=== PATIENT | female | born 1965 | race African-American/Black ===

== ENCOUNTER 2019-03-01 14:44 | Inpatient (IN) | payer MEDICARE, MEDICAID ==
[2019-03-01 15:16] LABS: #Basophils 0.1 thou/uL (0.0-0.2); #Monocytes 0.1 thou/uL (0.11-0.59); #Neutrophils 4.1 thou/uL (1.40-6.50); %Basophils 1.2 % (0.0-1.0); %Eosinophils 0.6 % (0.0-10.0); %Monocytes 1.7 % (0.0-10.0); %Neutrophils 64.5 % (42.0-75.0); Hemoglobin 13.2 g/dL (12.0-16.0); Mean Corpuscular HGB CONC 32.4 g/dL (32.0-36.0); Mean Corpuscular Hemoglobin 27.6 pg (27.0-31.0); Mean Corpuscular Volume 85.3 fL (78.0-98.0); Mean Platelet Volume 6.2 fL (7.4-10.4); Platelet Count 267 thou/uL (130-400); RBC Distribution Width 12.2 % (11.5-14.5); Red Blood Cell (RBC) Count 4.79 mill/uL (4.20-5.40); White Blood Cell (WBC) Count 6.3 thou/uL (4.8-10.8)
[2019-03-01 15:28] LABS: PTT 28.8 SEC (22.9-36.1); Prothrombin Time 13.2 SEC (12.0-14.7)
[2019-03-01 15:35] LABS: ALT (SGPT) 19 U/L (8-55); AST (SGOT) 24 U/L (5-34); Acetaminophen Less than 6.0 mcg/mL (10.0-30.0); Albumin 4.7 g/dL (3.5-5.0); Alcohol Less than 10 mg/dL (Less than 10); Alkaline Phosphatase 90 U/L (40-150); Anion Gap 11 mmol/L (10-20); BUN (Urea Nitrogen) 13 mg/dL (9.8-20.1); Bilirubin, Total 0.4 mg/dL (0.2-1.2); Calc. Creatinine Clearance 0 mL/min (70-130); Carbon Dioxide 28 mmol/L (22-29); Chloride 106 mmol/L (98-107); Estimated GFR-MDRD 47; Globulin 3.9 g/dL (2.4-3.5); Glucose 120 mg/dL (70-105); Potassium 4.2 mmol/L (3.5-5.1); Protein, Total 8.6 g/dL (6.0-8.3); Salicylate Less than 8.0 mg/dL (15.0-30.0); Sodium 141 mmol/L (136-145)
--- NOTE | 2019-03-01 15:37 | CT ---
CT BRAIN: 03/01/2019 PROVIDED CLINICAL HISTORY: Altered mental status. COMPARISON: 03/09/2015 FINDINGS: The ventricular system appears normal in size and morphology. There is no evidence for intracranial hemorrhage or mass effect. Encephalomalacia involving a portion of the right frontal region is redem onstrated. Chronic microvascular ischemic changes are also seen. The extracranial soft tissues and osseous structures demonstrate no acute abnormality. IMPRESSION: No evidence for intracranial hemorrhage or mass effect. POS: [facility]
[2019-03-01] MEDS ORDERED: Nitroglycerin 2% Ointment 1 INCH/1 GM Packet ONE (16:51)
[2019-03-01] MEDS ORDERED: Aspirin Chewable 81 MG TAB ONE (17:06)
[2019-03-01 18:11] LABS: Bilirubin Negative (Negative); Blood, Urine Small (Negative); Clarity CLEAR (Clear); Glucose, Urine (Dipstick) Negative (Negative); Leukocyte Moderate (Negative); Nitrite Negative (Negative); Protein, Urine (Dipstick) Negative (Neg-Trace); Specific Gravity, Urine 1.009 (1.002-1.036); Urobilinogen 0.2 mg/dL (0.2-1.0)
[2019-03-01 18:13] LABS: Bacteria/HPF Rare-Few HPF (None Seen); Hyaline Casts/LPF 0-3 HYALINE CAST LPF (0-3 Hyaline); RBC/HPF 0-3 HPF (0-3); Squamous Epithelial 0-3 HPF (0-3)
[2019-03-01 18:25] LABS: Amphetamine Not Detected (NotDetected); Barbiturates Screen Not Detected (NotDetected); Benzodiazepine Screen Not Detected (NotDetected); Cocaine Metabolite Screen Not Detected (NotDetected); Medtox Control Line Valid? VALID (VALID); Medtox Reader # READER 4; Methadone Not Detected (NotDetected); Methamphetamine Not Detected (NotDetected); Opiate Screen Not Detected (NotDetected); Oxycodone Screen Not Detected (NotDetected); Phencyclidine (PCP) Not Detected (NotDetected); THC/Cannabinoid Screen Not Detected (NotDetected); Tricyclic Screen Not Detected (NotDetected)
[2019-03-01] MEDS ORDERED: Ondansetron PF 4 MG/2 ML Vial IVP PRN (22:06)
[2019-03-01] MEDS ORDERED: Acetaminophen 325 MG TAB PO PRN (22:06)
[2019-03-01] MEDS ORDERED: Ondansetron ODT 4 MG TAB PO PRN (22:06)
[2019-03-01] MEDS ORDERED: hydrALAZINE 20 MG/ML VIAL SLOW IVP PRN (22:06)
[2019-03-01] MEDS ORDERED: Amlodipine 5 MG TAB PO SCH (22:15)
[2019-03-02 00:20] VITALS: BMI 31.4
--- NOTE | 2019-03-02 01:29 | HP ---
PRIMARY CARE PHYSICIAN: The patient currently does not have a primary care physician. CHIEF COMPLAINT: "They thought I had a stroke." HISTORY OF PRESENT ILLNESS: Ms. Gonzalez is a pleasant 54-year-old female, who has a history of schizophrenia as well as depression. She also has a history of hypertension, but has not been on blood pressure medications in sometime. She says that earlier today, she and her granddaughter went to pay the light bill and then they came back home. She says that she was trying to help her granddaughter get dressed and then she fell. She says she got weak on her left side and then she says her speech got slurred. Apparently, her sister's was present as well and called the ambulance, and they brought her to the emergency room for evaluation. There is concern for possible stroke versus possible psychiatric illness exacerbation, and she is being placed in observation for this. The patient says that she has been having trouble finding words and she will have very long pauses between sentences and in an attempt to try to collect her thoughts. She will continue to say just wait and will be at least 2 to 3 minutes before she can answer question. Her speech is however clear. She denies any chest pain or shortness of breath. No headache. No dizziness. No nausea. No vomiting. She denies ever having anything like this happened before, however, it is noted in her hospital records that she has had a previous stroke with left-sided weakness. REVIEW OF SYSTEMS: All systems are reviewed and are negative except for that mentioned in the history of present illness. PAST MEDICAL HISTORY: Significant for previous CVA, coronary artery disease on cardiac catheterization with nonobstructive disease, depression, chronic kidney disease stage 3, hypertension, and schizophrenia. PAST SURGICAL HISTORY: She has had a cardiac catheterization. She has had an ORIF of the right ulnar, as well as an appendectomy. ALLERGIES: NO KNOWN DRUG ALLERGIES. SOCIAL HISTORY: She is . She has 2 children. She is a nonsmoker and nondrinker. FAMILY HISTORY: Significant for diabetes in her grandmother. MEDICATIONS: She is only taking Seroquel right now. PHYSICAL EXAMINATION: GENERAL: She is alert and oriented. She appears to be in no acute distress, however at times, she will become tearful when asking questions. She is well developed and well nourished. VITAL SIGNS: Her blood pressure was ranging from 180 to 200 systolic, heart rate in the 70s, respiratory rate of 16, and she is afebrile. HEENT: Pupils are equal, round, and reactive. Extraocular muscles are intact. Her sclerae are anicteric. There is no erythema, no exudates. She has poor dentition. NECK: There is no adenopathy. No bruits. LUNGS: Clear to auscultation. I did not appreciate any wheezing, no rales, no rhonchi. CARDIOVASCULAR: She had a normal S1, S2. I did not appreciate an S3 or S4. No murmurs, clicks or rubs. ABDOMEN: Obese. Soft, nontender, and nondistended. Positive for bowel sounds. No rebound or guarding. No organomegaly. EXTREMITIES: There is no edema. No calf tenderness. No joint effusions. NEUROLOGIC: Her cranial nerves 2 through 12 are intact on her upper extremity. She did have some right upper extremity weakness compared to the left and she had a slight drift, as well as slight weakness on the right lower extremity. However, the muscle strength was 5/5. SKIN AND INTEGUMENT: There are no skin changes. No rash. However, it is noted that she did have some hammertoe deformities in the toes. LAB AND X-RAY: She had an EKG, which is by my reading, showed some baseline artifact. It was sinus and the rate was in the 90s. She had a CT scan of the brain, which was negative. Her lab results: White blood cell count 6.3, hemoglobin 13.2, hematocrit is 40.9, and platelet count is 267. INR is 1.0. Chemistry: Sodium 141, potassium 4.2, chloride is 106, CO2 is 28, BUN of 13, creatinine 1.4, glucose is 120. CK is 257. Troponin is less than 0.010. Urinalysis is essentially negative. Urine drug screen was negative. ASSESSMENT: This is a 54-year-old female, who presents to the emergency room with complaints of slurred speech and difficulty with word finding. It is equivocal whether or not she has any weakness. I suspect that her findings could likely be related to an exacerbation of her psychiatric illness. However, she does have risk factors for cerebrovascular disease and her blood pressure is uncontrolled. Therefore, we will place her in observation, get an echocardiogram as well as carotid Dopplers and MRI. Get a lipid panel and monitor her for atrial fibrillation. 1. Uncontrolled hypertension. We will restart amlodipine. It appears she had been on this particular medication in the past as well as p.r.n. medicines for blood pressure and likely she will need to go home on some type of antihypertensive. We will also place her on aspirin and low-dose statin. 2. For depression and schizophrenia, we will restart Seroquel and we will need to reconcile and restart her home medications. It is also noted that she denied any suicidal or homicidal ideation. Job ID: [id number]
[2019-03-02 06:11] LABS: Cardiac Risk 2.6 (Less than 4.5)
[2019-03-02] MEDS: Aspirin 325 mg Enteric Coated Tablet PO SCH (07:53)
[2019-03-02] MEDS: Enoxaparin Sodium 40 MG/0.4 ML SYRINGE SC SCH (07:54)
[2019-03-02] MEDS: Amlodipine 5 MG TAB PO SCH (07:55)
--- NOTE | 2019-03-02 08:33 | ULT ---
EXAM: Carotid Doppler PROVIDED CLINICAL HISTORY: TIA COMPARISON: 01/20/2015 FINDINGS: Grayscale and color Doppler sonography with spectral analysis was performed of the extracranial carot id system bilaterally. There is no evidence for a hemodynamically significant internal carotid artery stenosis by peak systolic velocity or ratio criteria. Antegrade flow is seen in the vertebral arteries. IMPRESSION: No sonographic evidence for a hemodynamically significant internal carotid artery stenosis.
--- NOTE | 2019-03-02 12:33 | MRI ---
NONCONTRAST ENHANCED MRI IMAGES BRAIN: DATE: 03/02/2019. COMPARISON: Comparison is made to a previous CT from 03/01/2019 and previous MRI from 03/09/2015. FINDINGS: Multiplanar multisequence noncontrast enhanced MRI images of the brain obtained. Old area of stroke is seen in the right cerebellum, right frontal lobe, left anterior and posterior f rontal lobes. These appear to be old. There are areas of acute diffusion restriction seen in the left centrum semiovale compatible with lef t deep white matter areas of acute stroke which were not present on the previous exam. These areas demonstrate mild increased T2 signal in the T2-weighted sequences. IMPRESSION: Multiple old areas of strokes and small subtle areas of acute strokes in the left centrum semiovale. Transcribed Date/Time: 03/02/2019 12:45 PM
--- NOTE | 2019-03-02 15:43 | PDOC.PN ---
- Subjective Encounter Start Date: 03/02/19 Encounter Start Time: 15:42 Patient lying in bed with family at bedside. She reports feeling a little better today, but still reporting right sided weakness and trouble finding her words. She denies chest pain, palpitations or shortness of breath. MRI showing acute infarct. - Objective Resuscitation Status - Order Detail: 03/01/19 22:01 Resuscitation Status Routine Resuscitation Status: FULL: Full Resuscitation MAR Reviewed: Yes Vital Signs & Weight: Vital Signs (12 hours) Temp Pulse Resp BP BP Pulse Ox 03/02/19 11:39 98.7 F 84 16 166/105 H 100 03/02/19 07:55 66 183/99 H 03/02/19 07:53 98.4 F 58 L 13 183/99 H 03/02/19 04:00 97.6 F 53 L 16 161/92 H 99 Weight Weight 194 lb 12.8 oz I&O: 03/01/19 03/02/19 03/03/19 06:59 06:59 06:59 Intake Total 150 Output Total 200 500 Balance -50 -500 Result Diagrams: 03/01/19 15:02 03/01/19 15:02 Radiology Reviewed by me: Yes Phys Exam - Physical Examination Constitutional: NAD HEENT: moist MMs, oral pharynx no lesions Neck: supple Respiratory: no wheezing, clear to auscultation bilateral Cardiovascular: RRR, no significant murmur Gastrointestinal: soft, positive bowel sounds Musculoskeletal: no edema, pulses present Right sided weakness noted Neurological: moves all 4 limbs 3+ strength on right, 5+ on the left Lymphatic: no nodes Psychiatric: A&O x 3 Skin: no rash, cap refill <2 seconds Dx/Plan (1) CVA (cerebral vascular accident) Code(s): I63.9 - CEREBRAL INFARCTION, UNSPECIFIED Status: Acute (2) HTN (hypertension) Code(s): I10 - ESSENTIAL (PRIMARY) HYPERTENSION Status: Acute (3) Dysarthria Code(s): R47.1 - DYSARTHRIA AND ANARTHRIA Status: Acute (4) Schizoaffective disorder Code(s): F25.9 - SCHIZOAFFECTIVE DISORDER, UNSPECIFIED Status: Acute - Plan cont current plan of care, plan discussed w/ family, PT/OT, speech therapy, DVT proph w/lovenox * MRI results discussed with patient and family and all questions answered * Await echo * Consult placed for Neurology Dr Buck * Continue ASA and statin therapy * Continue other home medications * PT/OT,speech therapy ordered * Transition to Inpatient due to acute stroke
[2019-03-02] MEDS: Atorvastatin Calcium 40 MG TAB PO SCH (20:38)
[2019-03-02] MEDS ORDERED: QUETIAPINE FUMARATE 500 MG PO SCH (21:00)
--- NOTE | 2019-03-03 08:53 | CT ---
CT BRAIN:. HISTORY: Stroke alert. FINDINGS: Noncontrast enhanced images of the brain obtained. Comparison is made to a previous exam from 03/01/2019. Old right frontal areas of stroke seen. There is an area of subtle reynolds-white differentiation hypoden sity which has developed in the posterior aspect of the left frontal lobe in the precentral sulcus. This may represent a newly developed left high MCA or ALPESH area of developing stroke. This area has de veloped since the previous comparison CT from 2 days earlier. IMPRESSION: Findings concerning for a small high posterior frontal lobe area of reynolds-white differentiation loss c ompatible with an area of stroke. Findings discussed with Dr. Wilde at 8:51 AM on 03/03/2019. Code CR Transcribed Date/Time: 03/03/2019 9:11 AM
[2019-03-03] MEDS ORDERED: Sodium Chloride 0.9% 1,000 ML IV SCH (09:00)
--- NOTE | 2019-03-03 09:13 | PDOC.PN ---
- Subjective Encounter Start Date: 03/03/19 Encounter Start Time: 09:00 Subjective: Code Apollo called due to somnolence and increased R-sided weakness -: with prior acute L-post frontal lobe CVA on ASA. + Seroquel overnight - Objective Resuscitation Status - Order Detail: 03/01/19 22:01 Resuscitation Status Routine Resuscitation Status: FULL: Full Resuscitation MAR Reviewed: Yes Vital Signs & Weight: Vital Signs (12 hours) Temp Pulse Resp BP Pulse Ox 03/03/19 08:00 97.3 F L 66 18 112/74 99 03/03/19 04:00 98.1 F 70 16 104/74 100 03/03/19 00:00 98.2 F 65 16 121/76 100 Weight Weight 194 lb 12.8 oz I&O: 03/02/19 03/03/19 03/04/19 06:59 06:59 06:59 Intake Total 150 1240 Output Total 200 500 Balance -50 740 Result Diagrams: 03/01/19 15:02 03/01/19 15:02 Additional Labs: Accuchecks 03/03/19 08:20 POC Glucose 143 H Radiology Reviewed by me: Yes (CT brain - L post frontal lobe acute infarct with mild edema) EKG Reviewed by me: Yes (Tele - SR) Phys Exam - Physical Examination somnolent, briefly opens eyes to name/tactile HEENT: PERRLA, sclera anicteric, oral pharynx no lesions Neck: no nodes, no JVD, supple, full ROM Respiratory: no wheezing, no rales, no rhonchi, clear to auscultation bilateral S1, S2 Cardiovascular: RRR, no significant murmur, no rub, gallop Gastrointestinal: soft, non-tender, no distention, positive bowel sounds Musculoskeletal: no edema, pulses present R-sided hemiparesis, moves XAVIER/LLE, + dysarthria somnolent Skin: normal turgor, cap refill <2 seconds Dx/Plan (1) CVA (cerebral vascular accident) Code(s): I63.9 - CEREBRAL INFARCTION, UNSPECIFIED Status: Acute Qualifiers: CVA mechanism: thrombosis Laterality of affected vessel: left Comment: L- posterior frontal lobe distribution, continue ASA, Lipitor (2) RUE weakness Code(s): R29.898 - OTH SYMPTOMS AND SIGNS INVOLVING THE MUSCULOSKELETAL SYSTEM Status: Acute Comment: Secondary to #1, general stroke mgmt, PT/OT (3) HTN (hypertension) Code(s): I10 - ESSENTIAL (PRIMARY) HYPERTENSION Status: Chronic Qualifiers: Hypertension type: essential hypertension Qualified Code(s): I10 - Essential (primary) hypertension Comment: BP stable currently (4) Dysarthria Code(s): R47.1 - DYSARTHRIA AND ANARTHRIA Status: Acute Comment: Persistent secondary to #1, monitor clinical progress (5) Schizoaffective disorder Code(s): F25.9 - SCHIZOAFFECTIVE DISORDER, UNSPECIFIED Status: Chronic Comment: Confirm home regimen of Seroquel - Plan PT/OT, social media sr strategy manager, speech therapy, out of bed/ambulate Continue Stroke protocol -: Continue ASA 325mg daily -: Confirm home dose of Seroquel and limit sedating meds -: Continue Lipitor -: SNF options * AM lab: BMP
[2019-03-03] MEDS: Aspirin 325 mg Enteric Coated Tablet PO SCH (09:24)
[2019-03-03] MEDS: Enoxaparin Sodium 40 MG/0.4 ML SYRINGE SC SCH (09:24)
[2019-03-03] MEDS: Amlodipine 5 MG TAB PO SCH (09:24)
[2019-03-03] MEDS: Sodium Chloride 0.9% 1,000 ML IV SCH ×2 (09:29→22:14)
[2019-03-03 09:33] LABS: PTT 27.5 SEC (22.9-36.1); Prothrombin Time 13.5 SEC (12.0-14.7)
[2019-03-03 09:44] LABS: CKMB 1.9 ng/mL (0-6.6); Troponin I Less than 0.010 ng/mL (< 0.028)
--- NOTE | 2019-03-03 10:16 | CON ---
DATE OF CONSULTATION: 03/03/2019 CONSULTING PHYSICIAN: Hospitalist Service. IMPRESSION: 1. Acute left centrum semiovale infarct resulting in right hemiparesis. 2. History of prior right MCA stroke. 3. Schizophrenia. 4. Hypertension. PLAN: 1. Continue aspirin and add a low dose of statin. 2. IV fluids. 3. Hold Seroquel. HISTORY OF PRESENT ILLNESS: Ms. Gonzalez is a 54-year-old black female with the above noted history. She came in with complaints of right-sided weakness. Her MRI of the brain showed an acute area of infarction involving the left centrum semiovale. There are chronic areas of infarction involving the right MCA territory. Her carotid ultrasound did not show any stenosis. Her echocardiogram showed a normal ejection fraction of 50% to 55%. She apparently received 500 mg of Seroquel last night. She was quite lethargic this morning, was not arousable. Code was called. She had a repeat CT scan of the brain, which showed an area of acute ischemia in the left subcortical region. She has been nonverbal according to the nursing staff. No seizure activity was witnessed by anyone. PAST MEDICAL HISTORY: As listed above. ALLERGIES: NONE. SOCIAL HISTORY: Unremarkable as far as the chart review. FAMILY HISTORY: Not obtainable. REVIEW OF SYSTEMS: Not obtainable. PHYSICAL EXAMINATION: GENERAL: A well-nourished, middle-aged woman, lying in bed quietly. VITAL SIGNS: Stable. She is afebrile. HEENT: Pupils are equal and reactive. Conjunctivae clear. Oropharynx clear. NECK: Supple. EXTREMITIES: No cyanosis. NEUROLOGIC: She appears to be quite lethargic. She would follow limitedly as far as simple commands go, could not get her to respond verbally. There is a slight right facial droop. The right upper and lower extremities appear quite flaccid. Plantar response was mute on the right and downgoing on the left. No abnormal movements were seen. Gait was not testable. LABORATORY DATA: EKG showed normal sinus rhythm. SUMMARY: Middle-aged woman with fairly impressive areas of chronic ischemic injury with minimal risk factors. She seems to have new right-sided weakness and fairly small area of infarction on the left. I agree with aspirin and statin. Her workup was otherwise complete. I would suspect that her level of consciousness should improve with time and sedatives washing out, probably will require rehab. Job ID: [id number]
[2019-03-03] MEDS ORDERED: Aspirin 300 MG Suppository PR SCH (16:15)
[2019-03-04] MEDS: Atorvastatin Calcium 40 MG TAB PO SCH ×2 (02:14→20:45)
[2019-03-04 05:23] LABS: Anion Gap 12 mmol/L (10-20); BUN (Urea Nitrogen) 16 mg/dL (9.8-20.1); Calc. Creatinine Clearance 85 mL/min (70-130); Calcium 9.5 mg/dL (7.8-10.44); Carbon Dioxide 21 mmol/L (22-29); Chloride 109 mmol/L (98-107); Estimated GFR-MDRD 65; Glucose 86 mg/dL (70-105); Potassium 3.9 mmol/L (3.5-5.1); Sodium 138 mmol/L (136-145)
[2019-03-04] MEDS ORDERED: Diabetic Tussin 200 MG/10 ML UDCUP PO PRN (08:00)
[2019-03-04] MEDS ORDERED: Sodium Chloride 0.65% Nasal 44 ML BOT EA NARE PRN (08:00)
[2019-03-04] MEDS ORDERED: Artificial Tears 18 DROP/0.9 ML EA EYE PRN (08:00)
[2019-03-04] MEDS ORDERED: Eucerin (Mineral Oil/Petrolatum,White) 30 gm Jar TOP PRN (08:00)
[2019-03-04] MEDS ORDERED: hydrALAZINE 20 MG/ML VIAL SLOW IVP PRN (08:00)
[2019-03-04] MEDS ORDERED: Bisacodyl 10 MG SUPP PR PRN (08:00)
[2019-03-04] MEDS ORDERED: Senokot S 8.6-50 MG TAB PO PRN (08:00)
[2019-03-04] MEDS ORDERED: Loratadine 10 MG TAB PO PRN (08:00)
[2019-03-04] MEDS ORDERED: Loperamide HCl 2 MG CAP PO PRN (08:00)
[2019-03-04] MEDS ORDERED: Cepastat Lozenges 1 LOZ PO PRN (08:00)
[2019-03-04] MEDS: Aspirin 325 mg Enteric Coated Tablet PO SCH (10:12)
[2019-03-04] MEDS: Enoxaparin Sodium 40 MG/0.4 ML SYRINGE SC SCH (10:13)
[2019-03-04] MEDS: Amlodipine 5 MG TAB PO SCH (10:13)
--- NOTE | 2019-03-04 11:10 | PDOC.PN ---
- Subjective Encounter Start Date: 03/04/19 Encounter Start Time: 07:20 -: old records requested/rev Patient seen and examined. No new complaints. No overnight events - Objective Resuscitation Status - Order Detail: 03/01/19 22:01 Resuscitation Status Routine Resuscitation Status: FULL: Full Resuscitation MAR Reviewed: Yes Vital Signs & Weight: Vital Signs (12 hours) Temp Pulse Resp BP BP Pulse Ox 03/04/19 10:13 86 167/102 H 03/04/19 07:57 98 F 81 20 154/95 H 97 03/04/19 04:56 97.9 F 86 18 178/99 H 98 Weight Weight 194 lb 12.8 oz I&O: 03/03/19 03/04/19 03/05/19 06:59 06:59 06:59 Intake Total 1240 1840 Output Total 500 1000 Balance 740 840 Result Diagrams: 03/01/19 15:02 03/04/19 04:40 Radiology Reviewed by me: Yes EKG Reviewed by me: Yes Phys Exam - Physical Examination Constitutional: NAD HEENT: PERRLA, moist MMs, sclera anicteric Neck: no JVD, supple Respiratory: no wheezing, no rales, no rhonchi Cardiovascular: RRR, no significant murmur, no rub Gastrointestinal: soft, non-tender, no distention, positive bowel sounds Musculoskeletal: no edema, pulses present Neurological: moves all 4 limbs Lymphatic: no nodes Psychiatric: normal affect, A&O x 3 Skin: no rash, normal turgor Dx/Plan (1) CVA (cerebral vascular accident) Code(s): I63.9 - CEREBRAL INFARCTION, UNSPECIFIED Status: Acute Qualifiers: CVA mechanism: thrombosis Laterality of affected vessel: left Comment: L- posterior frontal lobe distribution, continue ASA, Lipitor (2) RUE weakness Code(s): R29.898 - OTH SYMPTOMS AND SIGNS INVOLVING THE MUSCULOSKELETAL SYSTEM Status: Acute Comment: Secondary to #1, general stroke mgmt, PT/OT (3) Dyslipidemia Code(s): E78.5 - HYPERLIPIDEMIA, UNSPECIFIED Status: Chronic (4) HTN (hypertension) Code(s): I10 - ESSENTIAL (PRIMARY) HYPERTENSION Status: Chronic Qualifiers: Hypertension type: essential hypertension Qualified Code(s): I10 - Essential (primary) hypertension Comment: BP stable currently (5) Obesity (BMI 30.0-34.9) Code(s): E66.9 - OBESITY, UNSPECIFIED Status: Chronic (6) Schizoaffective disorder Code(s): F25.9 - SCHIZOAFFECTIVE DISORDER, UNSPECIFIED Status: Chronic Comment: - Plan cont current plan of care, plan discussed w/ family, PT/OT * continue current medical treatment for CVA * medication reviewed as below * symptomatic treatment * pt will benefit with stroke team evaluation today and tomorrow * discharge planning, should be able to discharge tomorrow. Review of Systems - Review of Systems ENT: negative: Ear Pain, Ear Discharge, Nose Pain, Nose Discharge, Nose Congestion, Mouth Pain, Mouth Swelling, Throat Pain, Throat Swelling, Other Respiratory: negative: Cough, Dry, Shortness of Breath, Hemoptysis, SOB with Excertion, Pleuritic Pain, Sputum, Wheezing Cardiovascular: negative: chest pain, palpitations, orthopnea, paroxysmal nocturnal dyspnea, edema, light headedness, other Gastrointestinal: negative: Nausea, Vomiting, Abdominal Pain, Diarrhea, Constipation, Melena, Hematochezia, Other Genitourinary: negative: Dysuria, Frequency, Incontinence, Hematuria, Retention , Other Musculoskeletal: negative: Neck Pain, Shoulder Pain, Arm Pain, Back Pain, Hand Pain, Leg Pain, Foot Pain, Other - Medications/Allergies Allergies/Adverse Reactions: Allergies Allergy/AdvReac Type Severity Reaction Status Date / Time No Known Drug Allergies Allergy Verified 03/01/19 21:33 Medications: Current Medications Acetaminophen (Tylenol) 650 mg PO Q4H PRN PRN Reason: Headache/Fever/Mild Pain (1-3) Amlodipine Besylate (Norvasc) 5 mg PO DAILY [facility] Last Admin: 03/04/19 10:13 Dose: 5 mg Artificial Tears (Tears Naturale) 2 drop EA EYE PRN PRN PRN Reason: Dry Eyes Aspirin (Ecotrin) 325 mg PO DAILY [facility] Last Admin: 03/04/19 10:12 Dose: 325 mg Atorvastatin Calcium (Lipitor) 40 mg PO HS [facility] Last Admin: 03/04/19 02:14 Dose: Not Given Bisacodyl (Dulcolax) 10 mg ND DAILYPRN PRN PRN Reason: Constipation Enoxaparin Sodium (Lovenox) 40 mg SC 0900 [facility] Last Admin: 03/04/19 10:13 Dose: 40 mg Guaifenesin (Robitussin Sf) 200 mg PO Q4H PRN PRN Reason: Cough Hydralazine HCl (Apresoline) 10 mg SLOW IVP Q4H PRN PRN Reason: SBP Greater Than 180 Loperamide HCl (Imodium) 2 mg PO PRN PRN PRN Reason: Diarrhea/Loose Stools Loratadine (Claritin) 10 mg PO DAILYPRN PRN PRN Reason: Sinus Symptoms Mineral Oil/White Petrolatum (Eucerin Cream) 0 gm TOP BIDPRN PRN PRN Reason: Dry Skin Ondansetron HCl (Zofran Odt) 4 mg PO Q6H PRN PRN Reason: Nausea/Vomiting Ondansetron HCl (Zofran) 4 mg IVP Q6H PRN PRN Reason: Nausea/Vomiting Senna/Docusate Sodium (Senokot S) 2 tab PO BID PRN PRN Reason: Constipation Sodium Chloride (Flush - Normal Saline) 10 ml IVF PRN PRN PRN Reason: Saline Flush Sodium Chloride ([place] Nasal [place] 0.65%) 0 ml EA NARE QIDPRN PRN PRN Reason: Nasal Congestion Throat Lozenges (Cepastat Lozenges) 1 chase PO Q2H PRN PRN Reason: Sore Throat
[2019-03-05] MEDS: Amlodipine 5 MG TAB PO SCH (08:18)
[2019-03-05] MEDS: Aspirin 325 mg Enteric Coated Tablet PO SCH (08:18)
[2019-03-05] MEDS: Enoxaparin Sodium 40 MG/0.4 ML SYRINGE SC SCH (08:21)
[2019-03-05] MEDS ORDERED: Polyethylene Glycol 3350 17 GM Packet PO SCH (09:00)
--- NOTE | 2019-03-05 11:06 | PDOC.PN ---
- Subjective Encounter Start Date: 03/05/19 Encounter Start Time: 07:30 pt is weak, PT recommends rehab, pt wants to take out her IV - Objective Resuscitation Status - Order Detail: 03/01/19 22:01 Resuscitation Status Routine Resuscitation Status: FULL: Full Resuscitation MAR Reviewed: Yes Vital Signs & Weight: Vital Signs (12 hours) Temp Pulse Resp BP BP Pulse Ox 03/05/19 08:18 87 164/98 H 03/05/19 07:44 97.6 F 90 20 173/93 H 98 03/05/19 04:00 99.0 F 94 18 156/97 H 96 03/05/19 00:00 98.3 F 99 19 121/94 H 96 Weight Admit Weight 194 lb 12.8 oz Weight 194 lb 12.8 oz I&O: 03/04/19 03/05/19 03/06/19 06:59 06:59 06:59 Intake Total 1840 793 Output Total 1000 600 Balance 840 193 Result Diagrams: 03/01/19 15:02 03/04/19 04:40 EKG Reviewed by me: Yes Phys Exam - Physical Examination Constitutional: NAD HEENT: PERRLA, moist MMs, sclera anicteric Neck: no JVD, supple Respiratory: no wheezing, no rales, no rhonchi Cardiovascular: RRR, no significant murmur, no rub Gastrointestinal: soft, non-tender, no distention, positive bowel sounds Musculoskeletal: no edema, pulses present Neurological: moves all 4 limbs Lymphatic: no nodes Psychiatric: normal affect Skin: no rash, normal turgor Dx/Plan (1) CVA (cerebral vascular accident) Code(s): I63.9 - CEREBRAL INFARCTION, UNSPECIFIED Status: Acute Qualifiers: CVA mechanism: thrombosis Laterality of affected vessel: left Comment: L- posterior frontal lobe distribution, continue ASA, Lipitor (2) RUE weakness Code(s): R29.898 - OTH SYMPTOMS AND SIGNS INVOLVING THE MUSCULOSKELETAL SYSTEM Status: Acute Comment: Secondary to #1, general stroke mgmt, PT/OT (3) Dyslipidemia Code(s): E78.5 - HYPERLIPIDEMIA, UNSPECIFIED Status: Chronic (4) HTN (hypertension) Code(s): I10 - ESSENTIAL (PRIMARY) HYPERTENSION Status: Chronic Qualifiers: Hypertension type: essential hypertension Qualified Code(s): I10 - Essential (primary) hypertension Comment: BP stable currently (5) Obesity (BMI 30.0-34.9) Code(s): E66.9 - OBESITY, UNSPECIFIED Status: Chronic (6) Schizoaffective disorder Code(s): F25.9 - SCHIZOAFFECTIVE DISORDER, UNSPECIFIED Status: Chronic Comment: - Plan cont current plan of care, PT/OT, social sciences research scientist * based on overall weakness, she will benefit with rehab * medication reviewed as below * symptomatic treatment * so far medically stable * continue stroke team evaluation * will consider discharge pending rehab approval. Review of Systems - Review of Systems Eyes: negative: Pain, Vision Change, Conjunctivae Inflammation, Eyelid Inflammation, Redness, Other ENT: negative: Ear Pain, Ear Discharge, Nose Pain, Nose Discharge, Nose Congestion, Mouth Pain, Mouth Swelling, Throat Pain, Throat Swelling, Other Respiratory: negative: Cough, Dry, Shortness of Breath, Hemoptysis, SOB with Excertion, Pleuritic Pain, Sputum, Wheezing Cardiovascular: negative: chest pain, palpitations, orthopnea, paroxysmal nocturnal dyspnea, edema, light headedness, other Gastrointestinal: negative: Nausea, Vomiting, Abdominal Pain, Diarrhea, Constipation, Melena, Hematochezia, Other Genitourinary: negative: Dysuria, Frequency, Incontinence, Hematuria, Retention , Other Musculoskeletal: negative: Neck Pain, Shoulder Pain, Arm Pain, Back Pain, Hand Pain, Leg Pain, Foot Pain, Other Skin: negative: Rash, Lesions, [place], Bruising, Other Neurological: Weakness. negative: Numbness, Incoordination, Change in Speech, Confusion, Seizures, Other - Medications/Allergies Allergies/Adverse Reactions: Allergies Allergy/AdvReac Type Severity Reaction Status Date / Time No Known Drug Allergies Allergy Verified 03/01/19 21:33 Medications: Current Medications Acetaminophen (Tylenol) 650 mg PO Q4H PRN PRN Reason: Headache/Fever/Mild Pain (1-3) Amlodipine Besylate (Norvasc) 5 mg PO DAILY [facility] Last Admin: 03/05/19 08:18 Dose: 5 mg Artificial Tears (Tears Naturale) 2 drop EA EYE PRN PRN PRN Reason: Dry Eyes Aspirin (Ecotrin) 325 mg PO DAILY [facility] Last Admin: 03/05/19 08:18 Dose: 325 mg Atorvastatin Calcium (Lipitor) 40 mg PO HS [facility] Last Admin: 03/04/19 20:45 Dose: 40 mg Bisacodyl (Dulcolax) 10 mg MO DAILYPRN PRN PRN Reason: Constipation Enoxaparin Sodium (Lovenox) 40 mg SC 0900 [facility] Last Admin: 03/05/19 08:21 Dose: 40 mg Guaifenesin (Robitussin Sf) 200 mg PO Q4H PRN PRN Reason: Cough Hydralazine HCl (Apresoline) 10 mg SLOW IVP Q4H PRN PRN Reason: SBP Greater Than 180 Loperamide HCl (Imodium) 2 mg PO PRN PRN PRN Reason: Diarrhea/Loose Stools Loratadine (Claritin) 10 mg PO DAILYPRN PRN PRN Reason: Sinus Symptoms Mineral Oil/White Petrolatum (Eucerin Cream) 0 gm TOP BIDPRN PRN PRN Reason: Dry Skin Ondansetron HCl (Zofran Odt) 4 mg PO Q6H PRN PRN Reason: Nausea/Vomiting Ondansetron HCl (Zofran) 4 mg IVP Q6H PRN PRN Reason: Nausea/Vomiting Polyethylene Glycol (Miralax) 17 gm PO DAILY [facility] Last Admin: 03/05/19 09:52 Dose: 17 gm Senna/Docusate Sodium (Senokot S) 2 tab PO BID PRN PRN Reason: Constipation Last Admin: 03/04/19 18:13 Dose: 2 tab Sodium Chloride (Flush - Normal Saline) 10 ml IVF PRN PRN PRN Reason: Saline Flush Last Admin: 03/04/19 20:45 Dose: 10 ml Sodium Chloride ([place] Nasal [place] 0.65%) 0 ml EA NARE QIDPRN PRN PRN Reason: Nasal Congestion Throat Lozenges (Cepastat Lozenges) 1 chase PO Q2H PRN PRN Reason: Sore Throat
[2019-03-05 15:20] VITALS: TEMP 98.4
[2019-03-05 16:58] VITALS: BP 150/101
--- NOTE | 2019-03-05 21:02 | DIS ---
DATE OF ADMISSION: 03/02/2019 DATE OF DISCHARGE: 03/05/2019 PRIMARY CARE PHYSICIAN: Yolanda Call admission. DISCHARGE DISPOSITION: Rehab. PRIMARY DISCHARGE DIAGNOSES: 1. Acute cerebrovascular accident. 2. Right upper extremity weakness due to problem #1. SECONDARY DISCHARGE DIAGNOSIS: 1. Hypertension. 2. Dyslipidemia. 3. Obesity with BMI 31. 4. Schizoaffective disorder. PRIMARY PROCEDURE/OPERATION: None. RADIOLOGICAL INVESTIGATION: CT brain, MRI brain, echocardiography. Repeat CT brain. Carotid Doppler. SIGNIFICANT LABORATORY DATA: Hemoglobin 13.2. INR 1.0. Creatinine 1.06. LDL 52. Urinalysis, leukocyte esterase moderate. Urine drug screen negative. DISCHARGE MEDICATIONS: 1. Seroquel 300 mg p.o. at bedtime. 2. Amlodipine 5 mg daily. 3. Aspirin 325 mg daily. 4. Lipitor 40 mg p.o. q.h.s. CONTRAINDICATION: None. CODE STATUS: Full code. INPATIENT CARDROOM MANAGER: Dr. Alhponse Buck, neurologist was consulted while in hospital. TEST RESULTS PENDING ON DISCHARGE: None. ALLERGIES: NO KNOWN DRUG ALLERGIES. DISCHARGE PLAN: Posthospital, the patient will follow up with primary care physician in 1 week. HOSPITAL COURSE: A 54-year-old female, who was admitted by Dr. Clark. Please see her H and P for further details. The patient came to emergency room for stroke-like symptoms. She was having right upper extremity weakness. Initial CT brain was not showing any acute process, but MRI confirmed multiple old areas of stroke and small areas of acute stroke in left centrum semiovale. The patient was admitted to Stroke Floor. The patient was evaluated by entire stroke team including neurologist. The patient was treated with aspirin. We started above-mentioned medication while in hospital. She had a stroke workup with carotid Doppler, which was unremarkable, and echocardiography was unremarkable. The patient had code green because of altered mental status that was related with somnolent medication, which was discontinued upon discharge. This patient is physically weak from stroke and that is why she needs rehab as per PT recommendation and with help of wrapper caser, we arranged physical rehabilitation program. Paperwork for discharge done and discharge medication reconciliation done. The patient is medically stable for discharge today. Job ID: [id number]
== END 2019-03-05 19:23 | DRG 65 ==
LOC: ERS 14:44 → 2SE 18:50 → OBSVTOIN 03-02 13:06
PROVIDERS: ADMIT Family Medicine; ATTEND Family Medicine
DX: I63.9 Cerebral infarction, unspecified (principal); G81.91 Hemiplegia, unspecified affecting right dominant side; I25.10 Atherosclerotic heart disease of native coronary artery without angina pectoris; F32.9 Major depressive disorder, single episode, unspecified; N18.3 Chronic kidney disease, stage 3 (moderate); I12.9 Hypertensive chronic kidney disease with stage 1 through stage 4 chronic kidney disease, or unspecified chronic kidney disease; F25.9 Schizoaffective disorder, unspecified; R47.1 Dysarthria and anarthria; E78.5 Hyperlipidemia, unspecified; E66.9 Obesity, unspecified; Z68.31 Body mass index [BMI] 31.0-31.9, adult; Z86.73 Personal history of transient ischemic attack (TIA), and cerebral infarction without residual deficits; Z95.5 Presence of coronary angioplasty implant and graft; Z90.49 Acquired absence of other specified parts of digestive tract
CPT/HCPCS: 36415; 36416; 70450; 70551; 80048; 80053; 80061; 80306; 80307; 81003; 81015; 82550; 82553; 84443; 84484; 85025; 85610; 85730; 93005; 93010; 93306; 93880; J1650

== ENCOUNTER 2019-04-24 09:49 | Inpatient (IN) | payer MEDICARE, MEDICAID ==
[~2019-04-24 09:49] MED LIST: ISOVUE-370 76%-LOCM 1 ML ONE
--- NOTE | 2019-04-24 10:06 | CT ---
CT Head without IV contrast COMPARISON: 03/03/2019. HISTORY: Stroke alert. Altered mental status. Left seen normal at 0915 hours. TECHNIQUE: Axial CT imaging at 5 mm intervals from vertex through skull base without contrast FINDINGS: There is a stable air insufflation right anterior frontal lobe with small area of septal malacia in t he left temporal lobe likely related to remote areas of infarction. There has been interval development of a low-density area within the left parietal lobe compared to the prior exam, but this does appear to represent an area of encephalomalacia. This was not seen in the prior CT scan examination, but there were findings suggestive of acute areas of infarctions in this region on MRI o f the brain on 03/02/2019. Remote infarctions in each cerebellar hemisphere are again seen. No acute cortical infarction, hemorrhage, mass effect, or midline shift is seen. There is mild cerebr al volume loss. The ventricular system is normal in size, shape, and position for the degree of sulcal atrophy. Visualized paranasal sinuses are clear. Metallic density overlies the region of the expected location of the tongue which is incompletely imaged but likely represents external jewelry. Osseous structures appear intact. IMPRESSION: 1. No acute intracranial abnormality demonstrated. 2. There is evidence of ventilation each cerebral hemisphere likely attributable to remote areas of i nfarction 3. Remote infarctions in each cerebellar hemisphere unchanged from prior exam. 4. Chronic small vessel ischemic changes and cerebral volume loss similar to prior exam. 5. Above findings discussed Dr. Mora in the emergency department on 04/24/2019 at 1001 hours
--- NOTE | 2019-04-24 10:29 | RAD ---
RADIOGRAPH CHEST 1 VIEW: DATE: 04/24/2019 HISTORY: 54-year-old female with dyspnea FINDINGS: There is no airspace density, pulmonary edema, or pneumothorax. The lateral costophrenic angles are n ot effaced. IMPRESSION: No acute pulmonary findings.
[2019-04-24 10:37] LABS: Mean Corpuscular HGB CONC 31.6 g/dL (32.0-36.0); Mean Corpuscular Hemoglobin 27.1 pg (27.0-31.0); Mean Platelet Volume 6.1 fL (7.4-10.4); Platelet Count 267 thou/uL (130-400); RBC Distribution Width 12.2 % (11.5-14.5); Red Blood Cell (RBC) Count 4.44 mill/uL (4.20-5.40); White Blood Cell (WBC) Count 5.1 thou/uL (4.8-10.8)
[2019-04-24] MEDS ORDERED: Fosphenytoin Sodium 1,500 MG in Sodium Chloride 0.9% 100 ML IVPB SCH (10:45)
[2019-04-24 10:53] LABS: Band 2 % (5-11); Eosinophils 1 % (0-10); Lymphocytes 56 % (21-51); MDiff Complete? YES; Monocytes 4 % (0-10); Neutrophil 37 % (42-75); RBC Morphology Normal
--- NOTE | 2019-04-24 10:53 | CT ---
EXAM: CT angiogram head with IV contrast and 3-D reconstructions CT angiogram neck with IV contrast and 3-D reconstructions CT brain perfusion PROVIDED CLINICAL HISTORY: Altered mental status. COMPARISON: Noncontrast CT head on 04/24/2019 and MRI brain on 03/02/2019. FINDINGS: There is occlusion of the M1 segment of the left middle cerebral artery with diminished enhancement o f peripheral branches in the left middle cerebral artery distribution. The right middle cerebral artery and bilateral anterior cerebral arteries are patent. There is a type origin of the right posterior cerebral artery which is patent. The basilar stevan ry is patent. There is occlusion of the most distal left posterior cerebral artery. The vertebral arteries are patent bilaterally, and the right vertebral artery is dominant. The left v ertebral artery arises from the aortic arch which is a normal variant. The bilateral subclavian arteries, innominate artery and bilateral common carotid arteries are patent . The bilateral internal and external carotid arteries appear patent. CT brain perfusion demonstrates decreased blood flow and blood volume in the right middle cerebral ar danyell distribution which corresponds to an area of encephalomalacia on noncontrast CT scan exam suggesting remote infarction. As noted above, there is occlusion of the M1 segment of the left middle cerebral artery. Area of dimi nished attenuation is seen within the left frontal lobe on the noncontrasted CT scan exam. However, this area of diminished attenuation was not seen on the prior CT examination but areas of infarction were seen on the prior MRI. Prior MRI examination also demonstrated what appears to be absence of the M1 segment left middle cerebral artery flow void, and this may be related to a more chronic occlu chemo. Perfusion imaging was not obtained above the level of the ventricles for further evaluation of the low density area in the left posterior frontal lobe, and as a result evaluation for penumbra i s unable to be performed. There is suggestion of area of diminished blood volume within the posterior left occipital lobe. Find ings are overall equivocal for an area of penumbra in the left occipital lobe based on blood volume and mean transit time. However, as noted on the CTA exam, there is an abrupt occlusion of the distal left posterior cerebral artery. IMPRESSION: 1. Occlusion of the M1 segment left middle cerebral artery with attenuation of the more distal left M CA branches. This was probably present on the prior MRI examination as there appeared to be absence of the left middle cerebral artery flow void; although, this is difficult to definitively determine o n the prior MRI exam. Low-density area in the left posterior frontal lobe on CT scan exam is likely related to a late subacute left MCA distribution infarction. 2. Abrupt occlusion of the more distal left posterior cerebral artery. There are findings suggestive of ischemia in the left occipital lobe on the CT brain perfusion; although, findings are equivocal for an area of penumbra in the left occipital lobe. 3. Patent bilateral internal carotid arteries. 4. Above findings discussed with Dr. Mora in the emergency department on 04/24/2019 at 1021 hours. Abo ve findings also discussed with Dr. Elder on 04/24/2019 at 1044 hours.
[2019-04-24 10:57] LABS: ALT (SGPT) 8 U/L (8-55); AST (SGOT) 12 U/L (5-34); Albumin 3.7 g/dL (3.5-5.0); Alkaline Phosphatase 65 U/L (40-150); Anion Gap 13 mmol/L (10-20); BUN (Urea Nitrogen) 10 mg/dL (9.8-20.1); Bilirubin, Total 0.7 mg/dL (0.2-1.2); CK (CPK) 36 U/L (29-168); Calc. Creatinine Clearance 0 mL/min (70-130); Calcium 9.6 mg/dL (7.8-10.44); Carbon Dioxide 26 mmol/L (22-29); Chloride 103 mmol/L (98-107); Estimated GFR-MDRD 68; Globulin 3.5 g/dL (2.4-3.5); Glucose 84 mg/dL (70-105); Potassium 3.7 mmol/L (3.5-5.1); Protein, Total 7.2 g/dL (6.0-8.3); Sodium 138 mmol/L (136-145)
[2019-04-24 11:48] LABS: Bilirubin Negative (Negative); Blood, Urine Negative (Negative); Clarity Clear (Clear); Glucose, Urine (Dipstick) Negative (Negative); Leukocyte Negative (Negative); Nitrite Negative (Negative); Protein, Urine (Dipstick) Negative (Neg-Trace)
[2019-04-24] MEDS ORDERED: cloNIDine 0.1 MG TAB PO PRN (11:55)
[2019-04-24] MEDS ORDERED: Nitroglycerin 0.4 MG TAB (25 Tab Bottle) SL PRN (11:55)
[2019-04-24] MEDS ORDERED: Ondansetron PF 4 MG/2 ML Vial IVP PRN ×2 (11:55)
[2019-04-24] MEDS ORDERED: Diabetic Tussin 200 MG/10 ML UDCUP PO PRN (11:55)
[2019-04-24] MEDS ORDERED: Acetaminophen 650 MG Suppository PR PRN (11:55)
[2019-04-24] MEDS ORDERED: Bisacodyl 5 MG TAB PO PRN (11:55)
[2019-04-24] MEDS ORDERED: hydrALAZINE 20 MG/ML VIAL SLOW IVP PRN (11:55)
[2019-04-24] MEDS ORDERED: Acetaminophen 325 MG TAB PO PRN (11:55)
[2019-04-24] MEDS ORDERED: Benzonatate 100 MG CAP PO PRN (11:55)
[2019-04-24] MEDS ORDERED: Sodium Chloride 0.65% Nasal 44 ML BOT EA NARE PRN (11:55)
[2019-04-24] MEDS ORDERED: Lorazepam 2 MG/ML VIAL SLOW IVP PRN (12:27)
--- NOTE | 2019-04-24 13:34 | HP ---
PRIMARY CARE PHYSICIAN: None. CHIEF COMPLAINT: Seizure-like activity and altered mental status. HISTORY OF PRESENTING ILLNESS: Ms. Gonzalez is a 54-year-old Afro-[place] female, with recent admission to our facility from 03/02/2019 to 03/05/2019, who was brought into the ER with above-mentioned complaint. History is mainly obtained by her daughter herself and discussion with the emergency room physician. The patient is still very confused and altered and is not able to provide any history. The patient was recently admitted to our facility on 03/02/2019, at which time, she was found to have acute CVA involving the left part of the brain resulting in right hemiparesis and dysphagia. She was discharged home on aspirin and statin on 03/05/2019. MRI of the brain done on 03/02/2019 showed multiple old areas of stroke and small subtle areas of acute stroke in the left centrum semiovale. She was seen by a neurologist, Dr. Buck at that time. An echocardiogram done as a part of stroke workup at that time was essentially within normal limits. The daughter reports that since her discharge from the hospital, the patient has been doing fairly well. She has some difficulty with her speech, but they are able to understand what she is trying to say. She is normally awake, alert, and oriented x3. She does have persistent left-sided hemiparesis, but she is working with physical therapist. She is able to feed herself with help. This morning, while they were just lounging around, all of a sudden the patient started to have seizure-like activity with violent shaking. EMS was called and she was having another seizure-like activity en route per the EMS. She was noticed with worsening speech impediment and right-sided weakness. Since presentation to the ER, she has been very altered and trying to get out of the bed according to her daughter. She is not able to open her eyes very well or converse properly. In the emergency room upon presentation, her blood pressure was 189/103. She underwent a CT scan of the brain, which did not show any acute hemorrhage or any acute new infarction. Then, she underwent a CT angio of the head and neck, which showed occlusion of the M1 segment of left MCA as well as abrupt occlusion of the more distal left posterior cerebral artery. Emergency room physician, Dr. Mora discussed these findings with on-call interventional neurologist, Dr. Elder. The films were reviewed by Dr. Eldre and it was found out that these clots are rather old and not new. No tPA or emergency procedure was indicated. At this time, Hospitalist Team was called to admit this patient for possible seizure-like activity. The patient has been loaded with fosphenytoin 1500 mg IV x1 and received 20 mg of IV hydralazine for uncontrolled hypertension. PAST MEDICAL HISTORY: 1. History of CVA at least x3, most recent February 2019. 2. Coronary artery disease, status post catheterization with nonobstructive disease. 3. Depression. 4. Chronic kidney disease, stage 3. 5. Hypertension. 6. Schizoaffective disorder. PAST SURGICAL HISTORY: 1. Cardiac catheterization. 2. ORIF of the right ulnar. 3. Appendectomy. ALLERGIES: NO KNOWN MEDICATION ALLERGIES. SOCIAL HISTORY: She is and lives with her children. No history of drug, tobacco, or alcohol abuse. FAMILY HISTORY: Significant for diabetes in her grandmother. HOME MEDICATIONS: As per the most recent discharge summary dictated by Dr. Su on 03/05/2019, she was discharged on following medications; 1. Seroquel 300 mg at bedtime. 2. Amlodipine 5 mg daily. 3. Aspirin 325 mg daily. 4. Lipitor 40 mg at bedtime. REVIEW OF SYSTEMS: The patient complains of right leg pain. Otherwise review of system is largely negative. It is not complete due to altered mental status. LABORATORY DATA: CBC shows 56% lymphocytes with a normal WBC count. Serum chemistries are unremarkable. Blood sugar 84. Cardiac enzymes, creatine kinase, and liver enzymes are unremarkable. Urinalysis is within normal limits. Chest x-ray by my review has no evidence of pleural effusion, edema, or infiltrate. CT scan of the brain does not show any acute hemorrhage by my review or mass. CT angio as per the HPI. A 12-lead EKG by my review shows sinus rhythm at 99 beats per minute without any acute ST or T-wave changes. PHYSICAL EXAMINATION: VITAL SIGNS: Upon presentation, blood pressure 189/107, pulse of 53, saturating 97% on room air, respirations 17, and afebrile. GENERAL: The patient is trying to get out of the bed, but she is easily redirectable. She follows simple commands, but falls back asleep pretty quickly. She is in no acute distress. She appears ill kempt and disheveled. HEENT: Mucous membrane is slightly dry. No oropharyngeal exudate or erythema. Head is normocephalic and atraumatic. Pupils are equal and reactive to light. NECK: Supple without any lymphadenopathy, JVD, or bruit. CHEST: Clear to auscultation without any wheezing, rales, or rhonchi. Rate and rhythm are regular without any murmurs, rubs, or gallops. ABDOMEN: Mildly distended, soft, and nontender. No guarding, rebound, or rigidity. NEUROLOGIC: She has persistent right-sided hemiparesis and dysarthria. Exam is limited by the patient's somnolence and not able to follow commands. SKIN: Free of any rashes or bruises. Feels warm and dry to touch. PSYCHIATRIC: Altered mental status with somnolence. IMPRESSION AND PLAN: 1. Altered mental status due to seizure. The patient most likely is having acute onset of seizures with past medical history of cerebrovascular accident. She does not seem to be having any acute cerebrovascular accident at this time. We will obtain an MRI of the brain to rule out the same. She has been treated with fosphenytoin and we will put her on IV Keppra for now. EEG will be ordered. We will request consultation with on-call Neurology Dr. Buck once again. She will be admitted to stroke floor with seizure precautions. The p.r.n. Ativan will also be ordered for breakthrough seizures. 2. Recent cerebrovascular accident. We will continue Stroke Team evaluation, OT, PT, and Speech Therapy working with the patient in here. The patient has home health from her prior discharge. We will restart her aspirin and statin for now. 3. Uncontrolled hypertension. We will restart her amlodipine and add p.r.n. antihypertensives and monitor. 4. Schizoaffective disorder. Restart her Seroquel. 5. Deep venous thrombosis and gastrointestinal prophylaxis. Care was discussed with the patient's daughter at bedside and she verbalized understanding. DISPOSITION: Ms. Gonzalez is being admitted to the hospital for new onset of seizures on the background of multiple CVAs, most recently 6 weeks ago. Estimated length of stay at this time is less than 2 midnights. Further management will depend upon her clinical course. Job ID: [id number]
[2019-04-24 14:01] LABS: Troponin I Less than 0.010 ng/mL (< 0.028)
--- NOTE | 2019-04-24 14:42 | MRI ---
MRI OF BRAIN WITH AND WITHOUT IV CONTRAST: 04/24/19 HISTORY: Seizure. CVA. FINDINGS: Correlation is made with the CT scan of the brain from the same day and MRI of 03/02/19. Exam is limited due to motion artifact. No restricted diffusion is seen. Old infarction in the right cerebellum, right frontal lobe, left ant erior and posterior frontal lobes are again seen. No evidence of acute infarct, hemorrhage, mass, mid line shift or abnormal extra-axial fluid collections are seen. No abnormal postcontrast enhancement i s identified. The ventricular size is stable and the basilar cisterns patent. Changes of chronic smal l vessel ischemic disease are again seen. IMPRESSION: 1. No evidence of acute intracranial process or mass. 2. Chronic changes. POS: [facility]
[2019-04-24 15:38] VITALS: BMI 28.4
[2019-04-24] MEDS: Sodium Chloride 0.9% 1,000 ML IV SCH (17:58)
[2019-04-24] MEDS ORDERED: QUETIAPINE FUMARATE 300 MG PO SCH (21:00)
[2019-04-24] MEDS ORDERED: Senokot S 8.6-50 MG TAB PO PRN ×2 (21:00)
[2019-04-24] MEDS: Famotidine/PF 20 mg/2ml Vial SLOW IVP SCH (21:22)
[2019-04-24] MEDS: Atorvastatin Calcium 40 MG TAB PO SCH (21:24)
[2019-04-25 05:35] LABS: #Lymphocytes 1.6 thou/uL (1.20-3.40); #Monocytes 0.4 thou/uL (0.11-0.59); #Neutrophils 2.3 thou/uL (1.40-6.50); %Basophils 0.7 % (0.0-1.0); %Lymphocytes 36.8 % (21.0-51.0); %Neutrophils 51.4 % (42.0-75.0); Hemoglobin 11.6 g/dL (12.0-16.0); Mean Corpuscular HGB CONC 32.2 g/dL (32.0-36.0); Mean Corpuscular Hemoglobin 27.6 pg (27.0-31.0); Mean Corpuscular Volume 85.8 fL (78.0-98.0); Mean Platelet Volume 6.2 fL (7.4-10.4); Platelet Count 264 thou/uL (130-400); RBC Distribution Width 12.2 % (11.5-14.5); Red Blood Cell (RBC) Count 4.21 mill/uL (4.20-5.40); White Blood Cell (WBC) Count 4.4 thou/uL (4.8-10.8)
[2019-04-25 05:55] LABS: Anion Gap 13 mmol/L (10-20); BUN (Urea Nitrogen) 7 mg/dL (9.8-20.1); Calc. Creatinine Clearance 93 mL/min (70-130); Calcium 9.3 mg/dL (7.8-10.44); Carbon Dioxide 23 mmol/L (22-29); Chloride 104 mmol/L (98-107); Estimated GFR-MDRD 82; Glucose 82 mg/dL (70-105); Potassium 4.2 mmol/L (3.5-5.1); Sodium 136 mmol/L (136-145)
[2019-04-25] MEDS ORDERED: Amlodipine 5 MG TAB PO SCH ×2 (09:00→21:00)
[2019-04-25] MEDS: Enoxaparin Sodium 40 MG/0.4 ML SYRINGE SC SCH (09:11)
[2019-04-25] MEDS: Famotidine/PF 20 mg/2ml Vial SLOW IVP SCH (09:11)
[2019-04-25] MEDS: Aspirin 325 mg Enteric Coated Tablet PO SCH (09:11)
[2019-04-25] MEDS: Sodium Chloride 0.9% 1,000 ML IV SCH (09:13)
--- NOTE | 2019-04-25 11:05 | CON ---
DATE OF TELEMEDICINE CONSULTATION WITH MARY HERRERA: 04/25/2019 CHIEF COMPLAINT: Possible seizure. HISTORY OF PRESENT ILLNESS: The patient is able to give limited medical history and also other history was obtained from the chart. The patient stated she thinks she had a stroke and she is not sure what happened. She was watching TV and ambulance was called. Based on her medical record, she was recently admitted between to 03/05 with an acute stroke and her daughter is her primary caregiver. In February, she had a stroke, which resulted in right hemiparesis and dysphagia. Dr. Buck has seen her at that time. The patient was doing fairly well at home. She has difficulty with speech and she has weakness and is working with a therapist. She is in a wheelchair normally. The patient was noted to have seizure-like activity with violent shaking. EMS was called and she had a second episode during transfer and she had worsening of speech problems and right-sided weakness in the ER and she was not very coherent during this time and she had a repeat CT angio of the head, which showed occlusion of M1 segment of left MCA and abrupt occlusion of most distal left STACK YIELD ENGINEER and she was determined to have old clot and at this time, she is admitted for possible seizure-like activity. She was given 1500 mg IV fosphenytoin in the ER and received 20 mg of hydralazine for hypertension. The patient was thought to have focal seizures. PAST MEDICAL HISTORY: History of CVA x3, most recent being in February 2019. Coronary artery disease status post catheterization with nonobstructive disease, depression, chronic kidney disease, hypertension, and schizoaffective disorder. PREVIOUS SURGICAL HISTORY: She had a repair of right ulnar fracture, appendectomy, and cardiac cath. ALLERGIES: NO KNOWN DRUG ALLERGIES. SOCIAL HISTORY: She is and lives with her children. No drug abuse. Daughter is her primary caregiver. FAMILY HISTORY: Negative for seizures. The patient has five siblings, two sisters and three brothers. Two brothers have diabetes. Father of alcoholism at 52. Mother is 65 and is healthy. She has two daughters, 23 and 25. Her children are healthy. MEDICATIONS: At home, she is on; 1. Seroquel 300 at bedtime. 2. Amlodipine 5 mg per day. 3. Aspirin 325. 4. Lipitor 40 mg. REVIEW OF SYSTEMS: Not very reliable due to the patient's mental status. LABORATORY WORKUP: White count 4.4, hemoglobin 11.6, and platelets 264. Chemistry; sodium 136, potassium 4.2, chloride 104, BUN 7, and creatinine 0.87. Urinalysis is negative. IMAGING STUDIES: Her CT angiogram with perfusion was performed yesterday and she has occlusion of M1 segment of left MCA with attenuation of more distal left MCA branches and also left MCA flow void and subacute left MCA infarct and abrupt occlusion of more distal left STACK YIELD ENGINEER and ischemia in the left occipital lobe and patent bilateral internal carotid artery and her MRI scan was completed as well. MRI of the brain does not show any acute intracranial process and she has chronic ischemia in the right cerebellum, right frontal lobe, left anterior and posterior frontal lobe, and chronic small vessel ischemic disease. PHYSICAL EXAMINATION: VITAL SIGNS: Temperature 97.7, pulse 87, and blood pressure 137/79. CHEST: Clear vesicular breathing. GENERAL APPEARANCE: Thin built lady, who appears somewhat confused, but cooperative. CARDIOVASCULAR: S1 and S2 normal. No murmurs noted. No leg swelling noted. ABDOMEN: Soft. NEUROLOGIC: Higher intellectual function. She is oriented to place and person , not time, and she had some difficulty with her history as well. Cranial nerve examination, she has flattening of the left nasolabial fold. Normal extraocular movements. Pupils are 2 mm, reactive to light and tongue midline. No atrophy noted. Motor, bulk normal. Tone normal. Strength, 2/5 in the right side and left 3/5 overall and there is some preserved strength in the flexors at 4/5 on the left side. Muscle groups tested are iliopsoas, hamstrings, quadriceps, ankle dorsiflexion, plantar flexion, deltoid, biceps, triceps, wrist extension and flexion, finger extension and flexion bilaterally. Sensory examination, she has numbness on the right side. Deep tendon reflexes 1+ in the left lower extremity , right upper extremity 2+, and left upper extremity was absent. Also extensor in the right Babinski. Cerebellar, the patient was unable to perform inmaty-mu-xefd or dywg-js-mpee. IMPRESSION: The patient is a 54-year-old lady with diffuse weakness due to multiple strokes, most recent being from February and she was witnessed to have two seizures. This is likely due to her cerebrovascular accident, where she might have a seizure focus. Preliminary EEG shows evidence of occasional spikes through the frontal areas, full report to follow. RECOMMENDATIONS: At this time, I do think she will benefit from Keppra on a regular basis to maintain balance and prevent further seizures and we will follow up the patient tomorrow. Job ID: [id number] MTDD
--- NOTE | 2019-04-25 12:56 | PDOC.PN ---
- Subjective Encounter Start Date: 04/25/19 (f/u seizure) Encounter Start Time: 12:54 Subjective: No overnight events noted, no further seizures. RN rohit pt -: is sleepy today - Objective Vital Signs & Weight: Vital Signs (12 hours) Temp Pulse Pulse Pulse Resp BP BP 04/25/19 12:00 98.2 F 89 16 04/25/19 09:28 78 85 140/85 04/25/19 09:12 87 137/79 04/25/19 08:36 83 78 144/91 H 04/25/19 08:33 97.7 F 87 16 137/79 04/25/19 08:00 97.7 F 87 16 04/25/19 04:00 98.6 F 90 16 BP BP Pulse Ox 04/25/19 12:00 145/85 H 99 04/25/19 09:28 142/96 H 04/25/19 09:12 04/25/19 08:36 137/85 04/25/19 08:33 99 04/25/19 08:00 137/79 99 04/25/19 04:00 149/100 H 96 Weight Weight 176 lb 1 oz I&O: 04/24/19 04/25/19 04/26/19 06:59 06:59 06:59 Intake Total 840 Output Total 1 Balance 840 -1 Result Diagrams: 04/25/19 05:08 04/25/19 05:08 EKG Reviewed by me: Yes (tele - sinus 80's) Phys Exam - Physical Examination Constitutional: NAD Respiratory: no wheezing, no rales, no rhonchi, clear to auscultation bilateral Cardiovascular: RRR, no significant murmur Gastrointestinal: soft, non-tender, no distention, positive bowel sounds Musculoskeletal: no edema slight movement of pointer finger on right, otherwise no other hand/arm mvm no movement of right leg. Normal movement on left side Deviation from normal: tired appearing, unable to adequately assess Dx/Plan (1) Seizure Code(s): R56.9 - UNSPECIFIED CONVULSIONS Status: Acute (2) Hemiparesis Code(s): G81.90 - HEMIPLEGIA, UNSPECIFIED AFFECTING UNSPECIFIED SIDE Status: Chronic Qualifiers: Cerebrovascular disease type: cerebral infarction (3) CVA (cerebral vascular accident) Code(s): I63.9 - CEREBRAL INFARCTION, UNSPECIFIED Status: Chronic Qualifiers: CVA mechanism: unspecified Qualified Code(s): I63.9 - Cerebral infarction, unspecified (4) Dyslipidemia Code(s): E78.5 - HYPERLIPIDEMIA, UNSPECIFIED Status: Chronic (5) HTN (hypertension) Code(s): I10 - ESSENTIAL (PRIMARY) HYPERTENSION Status: Chronic Qualifiers: Hypertension type: essential hypertension Qualified Code(s): I10 - Essential (primary) hypertension (6) Schizoaffective disorder Code(s): F25.9 - SCHIZOAFFECTIVE DISORDER, UNSPECIFIED Status: Chronic Qualifiers: Schizoaffective disorder type: unspecified Qualified Code(s): F25.9 - Schizoaffective disorder, unspecified Comment: - Plan * Appreciate teleNeurology consult - continue Keppra - will change to PO, eeg results pending * Appreciate pt/ot/speech - continue their recommendations * d/c IVF * increase amlodipine to BID as bp's 140-150s systolic and not at goal with hx of CVA * d/c IV famotidine, pt written for a diet * * leukopenia today - mild - recheck in AM * * dvt prophy - lovenox * gi prophy - not indicated * code status - presumed full - not listed and family not here presently to discuss * * pt remains at high risk in current condition.
[2019-04-25] MEDS: levETIRAcetam 500 MG TAB PO SCH (21:00)
[2019-04-25] MEDS: Atorvastatin Calcium 40 MG TAB PO SCH (21:00)
[2019-04-25] MEDS ORDERED: Sodium Chloride 0.9% 500 ML IV SCH (23:15)
--- NOTE | 2019-04-25 23:15 | PDOC.EVN ---
Event Note - Event Note Event Note: RN called - Patient tachycardic in 140s after her PM meds (Seroquel 300 mg HS @ [facility]) Will get STAT labs, IVF bolus. IV Metoprolol 2.5 IV x 1 if persistent tachycardia. EKG - ST QT - ok Hold Seroquel
[2019-04-25] MEDS: Metoprolol Tartrate 5 MG/5 ML VIAL IVP SCH ×2 (23:25→23:48)
[2019-04-26 00:08] LABS: Anion Gap 14 mmol/L (10-20); BUN (Urea Nitrogen) 10 mg/dL (9.8-20.1); Calc. Creatinine Clearance 88 mL/min (70-130); Calcium 9.1 mg/dL (7.8-10.44); Carbon Dioxide 22 mmol/L (22-29); Chloride 104 mmol/L (98-107); Estimated GFR-MDRD 77; Glucose 108 mg/dL (70-105); Magnesium 1.5 mg/dL (1.6-2.6); Potassium 3.4 mmol/L (3.5-5.1); Sodium 137 mmol/L (136-145)
[2019-04-26 05:10] LABS: #Lymphocytes 1.3 thou/uL (1.20-3.40); #Monocytes 0.4 thou/uL (0.11-0.59); %Basophils 0.7 % (0.0-1.0); %Eosinophils 0.8 % (0.0-10.0); %Lymphocytes 27.7 % (21.0-51.0); %Neutrophils 62.8 % (42.0-75.0); Mean Corpuscular HGB CONC 32.4 g/dL (32.0-36.0); Mean Corpuscular Hemoglobin 27.7 pg (27.0-31.0); Mean Corpuscular Volume 85.4 fL (78.0-98.0); Platelet Count 227 thou/uL (130-400); Red Blood Cell (RBC) Count 3.98 mill/uL (4.20-5.40); White Blood Cell (WBC) Count 4.7 thou/uL (4.8-10.8)
[2019-04-26 05:27] LABS: Anion Gap 12 mmol/L (10-20); BUN (Urea Nitrogen) 10 mg/dL (9.8-20.1); Calc. Creatinine Clearance 84 mL/min (70-130); Calcium 8.8 mg/dL (7.8-10.44); Carbon Dioxide 24 mmol/L (22-29); Chloride 106 mmol/L (98-107); Estimated GFR-MDRD 72; Glucose 100 mg/dL (70-105); Potassium 3.9 mmol/L (3.5-5.1); Sodium 138 mmol/L (136-145)
--- NOTE | 2019-04-26 08:46 | EKG ---
Test Reason : Blood Pressure : / mmHG Vent. Rate : 099 BPM Atrial Rate : 099 BPM P-R Int : 148 ms QRS Dur : 076 ms QT Int : 332 ms P-R-T Axes : 048 021 037 degrees QTc Int : 426 ms Normal sinus rhythm Normal ECG Confirmed by SARAH SANTIZO MD ([id number]), photography editor ALLI ANDUJAR ([id number]) on 04/26/2019 8:41:29 AM Also confirmed by SARAH SANTIZO MD ([id number]), photography editor ALLI ANDUJAR ([id number]) on 04/26/2019 8:46:16 AM Referred By: Confirmed By:SARAH SANTIZO MD
[2019-04-26] MEDS: Aspirin 325 mg Enteric Coated Tablet PO SCH (08:56)
[2019-04-26] MEDS: Enoxaparin Sodium 40 MG/0.4 ML SYRINGE SC SCH (08:56)
[2019-04-26] MEDS: levETIRAcetam 500 MG TAB PO SCH ×2 (08:56→21:07)
--- NOTE | 2019-04-26 09:34 | PDOC.PN ---
- Subjective Encounter Start Date: 04/26/19 (f/u stroke) Encounter Start Time: 09:30 Subjective: Pt with a few hours of tachycardia overnight - as high as 150 -: tx with IVF bolus, IV metoprolol. None noted since then. -: pt states she wants to go home - Objective Vital Signs & Weight: Vital Signs (12 hours) Temp Pulse Resp BP Pulse Ox 04/26/19 07:37 97.7 F 83 16 123/83 92 L 04/26/19 04:00 97.5 F L 91 18 110/75 98 04/26/19 00:25 122/77 04/26/19 00:00 98.7 F 101 H 18 115/77 96 04/25/19 23:51 101 H 82/63 L 04/25/19 23:09 148 H 12 169/98 H 97 04/25/19 22:52 98.9 F 143 H 143/88 H Weight Weight 176 lb 1 oz I&O: 04/25/19 04/26/19 04/27/19 06:59 06:59 06:59 Intake Total 840 1920 Output Total 1 Balance 840 1919 Result Diagrams: 04/26/19 04:59 04/26/19 04:59 EKG Reviewed by me: Yes (tele - sinus 80's except overnight 100-150) Phys Exam - Physical Examination Constitutional: NAD Respiratory: no wheezing, no rales, no rhonchi Cardiovascular: RRR, no significant murmur Gastrointestinal: soft, non-tender, no distention, positive bowel sounds right hemiparesis except some movement of right thumb and pointer finger Deviation from normal: answers questions appropriately Dx/Plan (1) Tachycardia Code(s): R00.0 - TACHYCARDIA, UNSPECIFIED Status: Acute (2) Seizure Code(s): R56.9 - UNSPECIFIED CONVULSIONS Status: Acute (3) Hemiparesis Code(s): G81.90 - HEMIPLEGIA, UNSPECIFIED AFFECTING UNSPECIFIED SIDE Status: Chronic Qualifiers: Cerebrovascular disease type: cerebral infarction (4) CVA (cerebral vascular accident) Code(s): I63.9 - CEREBRAL INFARCTION, UNSPECIFIED Status: Chronic Qualifiers: CVA mechanism: unspecified Qualified Code(s): I63.9 - Cerebral infarction, unspecified (5) Dyslipidemia Code(s): E78.5 - HYPERLIPIDEMIA, UNSPECIFIED Status: Chronic (6) HTN (hypertension) Code(s): I10 - ESSENTIAL (PRIMARY) HYPERTENSION Status: Chronic Qualifiers: Hypertension type: essential hypertension Qualified Code(s): I10 - Essential (primary) hypertension (7) Schizoaffective disorder Code(s): F25.9 - SCHIZOAFFECTIVE DISORDER, UNSPECIFIED Status: Chronic Qualifiers: Schizoaffective disorder type: unspecified Qualified Code(s): F25.9 - Schizoaffective disorder, unspecified Comment: - Plan * Unprovoked tachycardia (now resolved) in a patient with complicated current health * continue to hold seroquel * check echo - last one last month * check tsh- last one last month * monitor at least another 24 hours - if persistent, consider beta-tong * bp's improved today - hold amlodipine this AM in case beta-tong needed. Continue HS dose - teleNeurology consult - continue Keppra - to f/u today * Appreciate pt/ot/speech - continue their recommendations * anticipate pt may benefit from SNF as a transition to home - will d/w family and assistant case manager * leukopenia today - mild - monitor * * dvt prophy - lovenox * gi prophy - not indicated * code status - presumed full - not listed and family not here presently to discuss * * pt remains at high risk in current condition. DO not feel patient is safe for discharge given the new onset tachycardia. Pt is at high risk anyway with current clinical picture. * will update family as they are available
--- NOTE | 2019-04-26 18:38 | PRG ---
DATE OF TELEMEDICINE SERVICE: 04/26/2019 CHIEF COMPLAINT: Altered mental status. INTERVAL HISTORY: The patient had episode of ventricular tachycardia last night and she is somewhat sleepy this morning. The patient has not had any notable seizures, and the V-tach was not associated with seizures. The patient is currently waiting to be discharged, and Seroquel was held overnight due to presence of cardiac arrhythmia, and is currently on Keppra. LABORATORY DATA: Today, white count 4.7, hemoglobin 11, hematocrit 33.9, and platelet count 227. Chemistry; sodium 138, potassium 3.9, chloride 106, bicarb 24, BUN 10, creatinine 0.97, glucose 100. TSH 1.24. PHYSICAL EXAMINATION: VITAL SIGNS: Temperature 97.7, pulse 83, respiratory rate 16, O2 sats 92%, and blood pressure 123/83. NEUROLOGIC: The patient was sleepy, but arousable and able to follow simple commands. Cranial nerve examination; pupils are 2 mm. No facial asymmetry noted, other than slight flattening of the left nasolabial fold. Motor examination; 2/ 5 strength on the right side and left 3/5. IMPRESSION: The patient is a 54-year-old lady with generalized weakness. She has had multiple strokes and 2 witnessed seizures and she is currently on Keppra. EEG shows occasional frontal activity likely due to sedation and background is mostly encephalopathic. No active seizures were recorded on the EEG. RECOMMENDATIONS: Please continue Keppra, and once medically stable, she can be discharged with a followup with Dr. Buck. Job ID: [id number] MTDD
[2019-04-26] MEDS ORDERED: Amlodipine 5 MG TAB PO SCH (21:00)
[2019-04-26] MEDS: Atorvastatin Calcium 40 MG TAB PO SCH (21:06)
[2019-04-27 06:23] LABS: #Eosinphils 0.1 thou/uL (0.0-0.7); #Monocytes 0.4 thou/uL (0.11-0.59); #Neutrophils 1.6 thou/uL (1.40-6.50); %Basophils 0.3 % (0.0-1.0); %Eosinophils 2.5 % (0.0-10.0); %Lymphocytes 49.2 % (21.0-51.0); %Monocytes 9.7 % (0.0-10.0); %Neutrophils 38.3 % (42.0-75.0); Hemoglobin 10.9 g/dL (12.0-16.0); Mean Corpuscular HGB CONC 32.3 g/dL (32.0-36.0); Mean Corpuscular Hemoglobin 27.9 pg (27.0-31.0); Mean Corpuscular Volume 86.4 fL (78.0-98.0); Mean Platelet Volume 6.5 fL (7.4-10.4); Platelet Count 270 thou/uL (130-400); RBC Distribution Width 12.2 % (11.5-14.5); Red Blood Cell (RBC) Count 3.92 mill/uL (4.20-5.40)
[2019-04-27] MEDS: Enoxaparin Sodium 40 MG/0.4 ML SYRINGE SC SCH (08:52)
[2019-04-27] MEDS: Aspirin 325 mg Enteric Coated Tablet PO SCH (08:52)
[2019-04-27] MEDS: levETIRAcetam 500 MG TAB PO SCH (08:52)
--- NOTE | 2019-04-27 10:59 | PDOC.PN ---
- Subjective Encounter Start Date: 04/27/19 (f/u seizure) Encounter Start Time: 10:58 Subjective: No overnight events noted. No seroquel last night - held due to -: tachy the night before. No further tachy. Echo has not been performed. -: Pt without complaints. - Objective Vital Signs & Weight: Vital Signs (12 hours) Temp Pulse Resp BP Pulse Ox 04/27/19 07:30 98.7 F 75 20 119/70 98 04/27/19 04:53 98.2 F 82 16 118/79 97 04/27/19 00:00 97.5 F L 71 16 143/87 H 93 L Weight Weight 176 lb 1 oz I&O: 04/26/19 04/27/19 04/28/19 06:59 06:59 06:59 Intake Total 0 420 300 Output Total 1 Balance 9 420 300 Result Diagrams: 04/27/19 05:22 04/26/19 04:59 EKG Reviewed by me: Yes (tele - sinus 80-90's) Phys Exam - Physical Examination Constitutional: NAD Respiratory: no wheezing, no rales, no rhonchi, clear to auscultation bilateral Cardiovascular: RRR, no significant murmur Gastrointestinal: soft, non-tender, no distention, positive bowel sounds Musculoskeletal: no edema increased movement in right hand, no movement in right leg Dx/Plan (1) Tachycardia Code(s): R00.0 - TACHYCARDIA, UNSPECIFIED Status: Resolved (2) Seizure Code(s): R56.9 - UNSPECIFIED CONVULSIONS Status: Acute (3) Hemiparesis Code(s): G81.90 - HEMIPLEGIA, UNSPECIFIED AFFECTING UNSPECIFIED SIDE Status: Chronic Qualifiers: Cerebrovascular disease type: cerebral infarction (4) CVA (cerebral vascular accident) Code(s): I63.9 - CEREBRAL INFARCTION, UNSPECIFIED Status: Chronic Qualifiers: CVA mechanism: unspecified Qualified Code(s): I63.9 - Cerebral infarction, unspecified (5) Dyslipidemia Code(s): E78.5 - HYPERLIPIDEMIA, UNSPECIFIED Status: Chronic (6) HTN (hypertension) Code(s): I10 - ESSENTIAL (PRIMARY) HYPERTENSION Status: Chronic Qualifiers: Hypertension type: essential hypertension Qualified Code(s): I10 - Essential (primary) hypertension (7) Schizoaffective disorder Code(s): F25.9 - SCHIZOAFFECTIVE DISORDER, UNSPECIFIED Status: Chronic Qualifiers: Schizoaffective disorder type: unspecified Qualified Code(s): F25.9 - Schizoaffective disorder, unspecified Comment: - Plan * Pt overall improved * No further tachy - d/c seroquel, echo cancelled * No further seizures - appreciate Neurology eval and recommendation for keppra - continue as an outpatient * * leukopenia mild and stable - f/u as outpatient * * pt ready for discharge from the acute setting as sx have resolved. Will discuss home vs transitional care with whitneyradha noland she lives with. * * dvt prophy - lovenox * gi prophy - not indicated * code status full * *
[2019-04-27 11:51] VITALS: TEMP 98.5
[2019-04-27 12:39] VITALS: BP 145/101
--- NOTE | 2019-04-28 01:43 | DIS ---
DATE OF ADMISSION: 04/26/2019 DATE OF DISCHARGE: 04/27/2019 CONSULTANTS: Neurology, Dr. De León. MEDICATIONS: Reconciled at discharge. Discontinued medication is quetiapine, this was discontinued due to tachycardia. New medication, Keppra 500 mg b.i.d. Prescription provided for 30 days, one refill. Further refills from Dr. Buck. Medications to continue: 1. Amlodipine 5 mg daily. 2. Aspirin 325 mg daily. 3. Lipitor 40 mg at bedtime. FINAL DIAGNOSES: 1. Seizures. 2. Recent stroke with right hemiparesis. 3. Hypertension. 4. Dyslipidemia. 5. Coronary artery disease. 6. Schizoaffective disorder and depression. 7. Leukopenia and anemia, mild. HISTORY OF PRESENT ILLNESS: Ms. Gonzalez is a 54-year-old female with history of stroke and hospitalization last month in this facility, who presented to the emergency room after seizure-like activity was witnessed. EMS was called and brought her in. In the emergency room, the patient was found to be hypertensive with a blood pressure 189/103. She had a negative acute CT and the patient received fosphenytoin and hydralazine and hospitalist called for admission. HOSPITAL COURSE: The patient was started on IV Keppra and had consultation with Tele Neurology, Dr. De León, who agreed with this choice. It is recommended that she continue this in the outpatient setting and follow up with Dr. Buck. Blood pressures have been well controlled here. Her amlodipine initially was adjusted to twice a day as her blood pressures were in the 150s/100 systolic. However, over the past few days, her blood pressure has been normal and the amlodipine was changed back to once per day, she will continue that in the outpatient setting. The patient was continued on her aspirin and statin while here. The patient developed sinus tachycardia with rates in the 100 to 150s for a few hours. She was treated with some IV metoprolol, normal saline bolus, and has resolved. She was monitored for an additional 24 hours and no further tachycardia. Her Seroquel was held last night as this can be a side effect of the Seroquel. The patient by report, slept well and did well without the Seroquel and this will be discontinued. An echocardiogram was planned, however, it was not completed here and given the lack of recurrence, I do not think it is necessary today. The patient was not started on any medications, only the Seroquel was discontinued. She should follow up in the outpatient setting if any concerns or if this reoccurs. The patient overall improved. She does have some movement today in the fingers of her right hand, which is improved compared to 2 days ago. She has not demonstrated any movement at the wrist, elbow, or shoulder, nor does she have any movement of her right leg and this has been sequela of her stroke last month. The patient does meet criteria for discharge to home, I discussed with her daughter, Isabel who is ready to take her home. They have home health in place, and Isabel states they have what they need to help take care of her. We reviewed this hospital course and the change of medications as well to include the new antiseizure medication. PHYSICAL EXAMINATION: Please see note on chart from today. RODRIGUEZ FINDINGS AND TEST RESULTS: CBC today; 4.0, 10.9, 33.9, 270. On admission, white blood cell count 5.1, hemoglobin 12.0. Chemistry on 04/26; 138, 3.9, 106, 24, 10, 0.97, 100 with a calcium of 8.8. Troponin x2 negative. TSH 1.24. Urinalysis; specific gravity less than 1, otherwise negative. Chest x-ray on 04/24, no acute pulmonary findings. Head and neck CT angiogram with brain perfusion showed occlusion of the M1 segment of the MCA, with attenuation of the more distal left MCA branches, which was probably present on prior MRI, although difficult to definitively determine. Low-density area in the left posterior frontal lobe on CT, likely related to late subacute left MCA distribution infarct; abrupt occlusion of the more distal left posterior cerebral artery suggestive of ischemia in the left occipital lobe on the CT brain, although findings are equivocal for an area of penumbra in the left occipital lobe; patent bilateral internal carotid artery. Of note, these findings were discussed with Dr. Elder of Neurosurgery, no intervention was deemed necessary. Brain CT, no acute intracranial abnormality. Evidence of ventilation in each cerebral hemisphere likely attributable to remote areas of infarction. Remote infarction in each cerebellar hemisphere unchanged. Chronic small-vessel ischemic changes and cerebral volume loss similar to prior exam. ACTIVITY: As tolerated. She will continue PT, OT, and speech with Home Health. DIET: Recommended is heart healthy with mechanical soft, small sips by cup and controlled sips by straw of liquids. CODE STATUS: Full. DISCHARGE DISPOSITION: Home. As noted above, I reviewed the hospital course, the changes in medication, and the plan of care and followup with the patient's daughter. No questions or further needs at the end of evaluation. FOLLOWUP: Follow up with Dr. Buck within 2 weeks to review this hospitalization, adjust Keppra if necessary and address any other health needs. Follow up with the primary care provider within 2 weeks to recheck CBC, and address any other health needs. TOTAL TIME COORDINATING DISCHARGE: 40 minutes. Job ID: [id number]
--- NOTE | 2019-04-29 16:34 | EEG ---
Referring Physician: Coco MANCERA EEG # [id number] TEST TYPE: ROUTINE PORTABLE INPATIENT REPORT: AN EEG USING THE INTERNATIONAL TEN-TWENTY SYSTEM OF ELECTRODE PLACEMENT WAS PERFORMED. The waking background is a 9 hertz Alpha frequency. The patient remained awake throughout the study. Photic stimulation was unremarkable. No epileptiform features were present. IMPRESSION: THIS IS A NORMAL AWAKE EEG. Drafting Engineer: BACILIO Armature Winder Repair Helper: [email or web address] CUELLO
== END 2019-04-27 12:02 | disposition home or self-care (01) | DRG 101 ==
LOC: ERS 09:49 → 2SE 13:58 → OBSVTOIN 04-26 09:47
PROVIDERS: ADMIT Internal Medicine; ATTEND Internal Medicine
DX: R56.9 Unspecified convulsions (principal); G81.91 Hemiplegia, unspecified affecting right dominant side; F32.9 Major depressive disorder, single episode, unspecified; I25.10 Atherosclerotic heart disease of native coronary artery without angina pectoris; I12.9 Hypertensive chronic kidney disease with stage 1 through stage 4 chronic kidney disease, or unspecified chronic kidney disease; N18.3 Chronic kidney disease, stage 3 (moderate); F25.9 Schizoaffective disorder, unspecified; D72.819 Decreased white blood cell count, unspecified; R00.0 Tachycardia, unspecified; Z86.73 Personal history of transient ischemic attack (TIA), and cerebral infarction without residual deficits; Z90.49 Acquired absence of other specified parts of digestive tract; Z95.5 Presence of coronary angioplasty implant and graft; Z79.82 Long term (current) use of aspirin; Z79.899 Other long term (current) drug therapy
CPT/HCPCS: 0042T; 36415; 36416; 51701; 70450; 70496; 70498; 70553; 71045; 80048; 80053; 81003; 82550; 83735; 84100; 84443; 84484; 85025; 93005; 93010; 95816; 95819; 96365; A4353; J1650; J1953; J3490; Q2009; S0028

== ENCOUNTER 2019-08-29 10:34 | Inpatient (IN) | payer MEDICARE, MEDICAID ==
[2019-08-29 11:22] LABS: #Lymphocytes 1.7 thou/uL (1.20-3.40); #Monocytes 0.3 thou/uL (0.11-0.59); #Neutrophils 3.2 thou/uL (1.40-6.50); %Basophils 0.1 % (0.0-1.0); %Eosinophils 0.1 % (0.0-10.0); %Monocytes 4.8 % (0.0-10.0); %Neutrophils 61.9 % (42.0-75.0); Hemoglobin 12.4 g/dL (12.0-16.0); Mean Corpuscular HGB CONC 33.4 g/dL (32.0-36.0); Mean Corpuscular Volume 83.7 fL (78.0-98.0); Mean Platelet Volume 6.5 fL (7.4-10.4); Platelet Count 240 thou/uL (130-400); Red Blood Cell (RBC) Count 4.43 mill/uL (4.20-5.40); White Blood Cell (WBC) Count 5.2 thou/uL (4.8-10.8)
--- NOTE | 2019-08-29 11:35 | CT ---
CT Brain WO Con History: Altered mental status Comparison: MRI brain March 2019. CT brain March 2019 Findings: Bifrontal white matter insufflation small infarctions. Extensive microangiopathic changes. There is a lentiform increased density in the temporal horn and atria left lateral ventricle suggesti ve of hemorrhage, new from the March 2019 exam. ALPESH calcifications are similar. On the previous MRI examination there is no choroid plexus mass. Impression: Nondependent lentiform shaped hemorrhage within the atria and temporal horn left lateral ventricle indicative of choroid plexus hemorrhage. Code CR Dr. Morelos 11:30 AM.
--- NOTE | 2019-08-29 11:51 | RAD ---
PORTABLE CHEST 1 VIEW: Date: 08/29/19 Time: 1124 hours HISTORY: Seizure, altered mental status. FINDINGS: Comparison made with exam of 04/24/19. The heart size is normal. The lungs are well expanded without lobar consolidation, pneumothoraces, or pleural effusions. IMPRESSION: No radiographic evidence of acute cardiopulmonary process. POS: [facility]
[2019-08-29 12:11] LABS: ALT (SGPT) 7 U/L (8-55); AST (SGOT) 18 U/L (5-34); Albumin 4.3 g/dL (3.5-5.0); Alkaline Phosphatase 61 U/L (40-110); Anion Gap 17 mmol/L (10-20); BUN (Urea Nitrogen) 15 mg/dL (9.8-20.1); Bilirubin, Total 1.1 mg/dL (0.2-1.2); CK (CPK) 191 U/L (29-168); Calc. Creatinine Clearance 0 mL/min (70-130); Carbon Dioxide 24 mmol/L (22-29); Chloride 99 mmol/L (98-107); Estimated GFR-MDRD 69; Globulin 4.3 g/dL (2.4-3.5); Glucose 94 mg/dL (70-105); Lipase 7 U/L (8-78); Potassium 4.1 mmol/L (3.5-5.1); Protein, Total 8.6 g/dL (6.0-8.3); Sodium 136 mmol/L (136-145)
[2019-08-29 12:18] LABS: Acetaminophen Less than 6.0 mcg/mL (10.0-30.0); Alcohol Less than 10 mg/dL (Less than 10); Salicylate Less than 8.0 mg/dL (15.0-30.0)
[2019-08-29] MEDS ORDERED: levETIRAcetam 500 MG/100 ML PREMIX BAG ONE (12:21)
[2019-08-29] MEDS ORDERED: Lorazepam 2 MG/ML VIAL ONE (12:21)
[2019-08-29 12:33] LABS: PTT 30.2 SEC (22.9-36.1); Prothrombin Time 13.5 SEC (12.0-14.7)
[2019-08-29 12:41] LABS: CKMB 1.7 ng/mL (0-6.6)
[2019-08-29] MEDS ORDERED: Ondansetron PF 4 MG/2 ML Vial IVP PRN (12:56)
[2019-08-29] MEDS ORDERED: Acetaminophen 325 MG TAB PO PRN (12:56)
[2019-08-29] MEDS ORDERED: Milk Of Magnesia 30 ML UDCUP PO PRN (12:56)
[2019-08-29] MEDS ORDERED: Labetalol HCl 100 MG/20 ML VIAL SLOW IVP PRN (12:56)
[2019-08-29] MEDS ORDERED: traMADol HCl 50 MG TAB PO PRN ×2 (12:56)
[2019-08-29] MEDS ORDERED: Docusate 100 MG CAP PO PRN (12:56)
[2019-08-29] MEDS ORDERED: Mag-Al 1200 mg/1200 mg/30 ML UDCUP PO PRN (12:56)
[2019-08-29 13:57] LABS: Bilirubin Negative (Negative); Blood, Urine Trace (Negative); Clarity Clear (Clear); Glucose, Urine (Dipstick) Normal (Negative); Leukocyte Negative Leu/uL (Negative); Nitrite Negative (Negative); Protein, Urine (Dipstick) Negative (Neg-Trace); RBC/HPF 0-3 HPF (0-3); Squamous Epithelial None Seen HPF (0-3); Urobilinogen Normal mg/dL (Less than 2); WBC/HPF 0-3 HPF (0-3)
[2019-08-29 14:01] LABS: Amphetamine Not Detected (NotDetected); Barbiturates Screen Not Detected (NotDetected); Benzodiazepine Screen Not Detected (NotDetected); Cocaine Metabolite Screen Not Detected (NotDetected); Medtox Control Line Valid? VALID (VALID); Medtox Reader # READER 1; Methadone Not Detected (NotDetected); Methamphetamine Not Detected (NotDetected); Opiate Screen Not Detected (NotDetected); Oxycodone Screen Not Detected (NotDetected); Phencyclidine (PCP) Not Detected (NotDetected); THC/Cannabinoid Screen Not Detected (NotDetected); Tricyclic Screen Not Detected (NotDetected)
[2019-08-29 14:17] LABS: Bacteria/HPF None Seen HPF (None Seen); Mucous/LPF 1+ LPF (<2+)
[2019-08-29] MEDS: Sodium Chloride 0.9% 1,000 ML IV SCH (16:12)
--- NOTE | 2019-08-29 17:48 | HP ---
HISTORY OF PRESENT ILLNESS: Ms. Gonzalez is a 54-year-old female, who was brought to the emergency department this morning by her daughter for seizure activity. The daughter states that she went into her mother's room to check on her and give her morning medications, and she appeared being unresponsive and shaking. The patient had first known seizure in this summer, approximately March, and was started on Keppra b.i.d. which she has been continued. She also has history of stroke. However, she is not on blood thinners for at least a week. Upon visiting the ER , CT head was done showing a left-sided intraventricular hemorrhage. The patient is alert and oriented x3. She is following commands when she wants to. Her pupils are equal, round, and reactive to light. Extraocular movements are intact. Hearing intact. Moist mucous membranes. Her speech is slurred, which daughter states is baseline as well as she has weakness on the right side, the left lower is worse than the right upper. Left upper and lower extremities have good strength and range of motion. Sensation is normal. She complains of low back pain, which has also been there from several months. She denies any numbness or tingling. Coagulation studys were within normal limits. REVIEW OF SYSTEMS: A 10-point review of systems has been completed and is negative other than stated in the above HPI. MEDICATIONS: Keppra 500 mg b.i.d. ALLERGIES: NO KNOWN DRUG ALLERGIES. PAST MEDICAL HISTORY: Hypertension, untreated; two strokes; right-sided weakness and seizures. PAST SURGICAL HISTORY: Right arm surgery, appendectomy. PSYCHIATRIC HISTORY: Bipolar, depression, schizophrenia. SOCIAL HISTORY: The patient denies alcohol, drugs, or tobacco use. She has a daughter who helps take care of her. PHYSICAL EXAMINATION: VITAL SIGNS: Blood pressure 132/91, heart rate 113, respirations 26, temperature 97.8, O2 saturation 100% on room air. CONSTITUTIONAL: The patient is unkempt, however, she is alert and oriented. She still appears to be upset about being back in the hospital and is a little worried about what is happening with her. HEENT. Head is normocephalic and atraumatic. Pupils are equal, round, and reactive to light. Moist mucous membranes. Hearing is intact. Extraocular movements are intact. RESPIRATIONS: Normal work of breathing on room air. Symmetric chest rise. EXTREMITIES: Upper extremities, 5/5 strength in the bilateral deltoids, biceps. Pull Through Hooker strength, decreased triceps on the right. Lower extremity significantly decreased strength, right compared to left. The patient has a lower extremity orthosis for footdrop and has significant weakness, but has an antigravity, hip flexion, knee extension, and knee flexion. NEUROLOGIC: The patient is awake, alert, oriented to person, place, and time. GCS 15. The patient is not always cooperative, but knows where she is and why she is here. Her speech is somewhat slurred, but understandable. Daughter states that this is at her baseline. She does have weakness in the right lower extremity greater than the right upper extremity compared to both left side. No sensory changes bilaterally. IMAGING DATA: CT of the brain showed left lateral ventricle hemorrhage. ASSESSMENT AND PLAN: Ms. Gonzalez is a 54-year-old female who was brought in for seizures, found to have an intraventricular hemorrhage. Neurosurgery is going to admit her. We are going to maintain normal blood pressure. We are pending a Keppra level to decide on dosing for her Keppra. We will consult Hospitalist and Neurology who will obtain a new CT of her head in the morning and frequent neuro checks. If there are any further questions, please contact Neurosurgery team. Job ID: [id number] MTDD
[2019-08-29] MEDS ORDERED: hydrALAZINE 20 MG/ML VIAL SLOW IVP PRN (19:55)
[2019-08-29] MEDS: Famotidine/PF 20 mg/2ml Vial SLOW IVP SCH (20:11)
[2019-08-29] MEDS: levETIRAcetam 500 MG TAB PO SCH (20:12)
[2019-08-29] MEDS: niCARdipine 25 MG in Sodium Chloride 0.9% 250 ML 240 ML IVPB SCH (23:06)
[2019-08-30] MEDS: Sodium Chloride 0.9% 1,000 ML IV SCH ×3 (04:16→16:09)
[2019-08-30 04:35] LABS: #Lymphocytes 2.2 thou/uL (1.20-3.40); #Monocytes 0.4 thou/uL (0.11-0.59); #Neutrophils 2.4 thou/uL (1.40-6.50); %Basophils 0.1 % (0.0-1.0); %Eosinophils 0.2 % (0.0-10.0); %Lymphocytes 44.4 % (21.0-51.0); %Monocytes 7.1 % (0.0-10.0); %Neutrophils 48.1 % (42.0-75.0); Hemoglobin 11.1 g/dL (12.0-16.0); Mean Corpuscular Hemoglobin 27.7 pg (27.0-31.0); Mean Corpuscular Volume 83.8 fL (78.0-98.0); Platelet Count 218 thou/uL (130-400); RBC Distribution Width 11.7 % (11.5-14.5)
[2019-08-30 04:59] LABS: ALT (SGPT) 7 U/L (8-55); AST (SGOT) 18 U/L (5-34); Albumin 3.7 g/dL (3.5-5.0); Alkaline Phosphatase 53 U/L (40-110); Anion Gap 16 mmol/L (10-20); BUN (Urea Nitrogen) 11 mg/dL (9.8-20.1); Bilirubin, Total 1.1 mg/dL (0.2-1.2); Calc. Creatinine Clearance 73 mL/min (70-130); Calcium 9.4 mg/dL (7.8-10.44); Carbon Dioxide 21 mmol/L (22-29); Chloride 103 mmol/L (98-107); Estimated GFR-MDRD 72; Globulin 3.6 g/dL (2.4-3.5); Glucose 87 mg/dL (70-105); Magnesium 1.7 mg/dL (1.6-2.6); Potassium 4.1 mmol/L (3.5-5.1); Protein, Total 7.3 g/dL (6.0-8.3); Sodium 136 mmol/L (136-145)
--- NOTE | 2019-08-30 07:37 | PRG ---
DATE OF SERVICE: 08/30/2019 I saw Sruthi Gonzalez in the ICU this morning. I personally interviewed and examined her and I agree with the documentation of Bhumika Mitchell PA-C, dated 08/29/2019. Briefly, Sruthi Gonzalez is a 54-year-old woman who has had multiple MCA strokes on both sides of her brain who came to our emergency department yesterday after seizure. CT image of the brain revealed intraventricular hemorrhage in the temporal horn on the left side. There was no mass effect. She has been watched overnight and she has not had any further seizure activity. Follow up CT scans have been done. No events have been reported. Her vitals are stable. When I talked to Ms. Gonzalez, she does have deficits including some right-sided neglect and a little bit more weakness on the left than the right from previous strokes, but as best I can tell, she is at her neurological baseline. CT imaging this morning shows partial resolution of the intraventricular hemorrhage. Ms. Gonzalez will need neurosurgical intervention for this. She can be managed on the Medical Service and Neurology has been consulted to control her seizures. I will get a CT angiogram to make sure there is no vascular malformation. I wonder if she has a history of vasculitis causing her strokes and predisposing her to this hemorrhage, but a CT angiogram will be helpful. We will follow up on that and Neurosurgery will see her during her hospital stay. Job ID: [id number]
--- NOTE | 2019-08-30 07:51 | CT ---
PRELIMINARY REPORT/[facility]/EMERGENCY AFTER HOURS PROCEDURE: PROCEDURE INFORMATION: Exam: CT Head Without Contrast Exam date and time: 08/30/2019 4:04 AM Clinical history: 54 years old, female; Condition or disease; Patient HX: F/u ich TECHNIQUE: Imaging protocol: Computed tomography of the head without contrast. COMPARISON: CT Brain WO Con 08/29/2019 11:16 AM FINDINGS: Brain: Small amount of acute blood again seen in the temporal horn of the left lateral ventricle, not significantly changed. No definite new hemorrhage in the interval. No significant mass effect or midline shift. There is decreased attenuation in the periventricular white matter, likely from microv ascular disease. Large old infarcts in the right frontal lobe and high left frontal/parietal region. Small old infarcts in the left frontal periventricular white matter, and in the left cerebell um. No definite acute infarct by CT. Ventricles: ventricle size is within normal limits, not significantly changed. Bones/joints: No definite acute skull fracture. Sinuses: Included paranasal sinuses are essentially clear. Mastoid air cells: No significant acute finding. Vasculature: Vascular calcifications in the internal carotid and vertebral basilar systems. IMPRESSION: 1. Small amount of acute blood again seen in the left lateral ventricle, not significantly changed. 2. No definite new hemorrhage in the interval. 3. Changes of microvascular disease, and old infarcts, details above. 4. Other findings discussed above. Thank you for allowing us to participate in the care of your patient. Dictated and Authenticated by: Raul Tesfaye MD 08/30/2019 4:29 AM Central Time ([place] & [place]) FINAL REPORT HEAD CT WITHOUT CONTRAST: HISTORY: Follow-up intracranial hemorrhage. COMPARISON: 08/29/2019. FINDINGS: Hemorrhage: Stable hyperdensity in the temporal horn of the left lateral ventricle. Brain parenchyma: Cortical reynolds-white matter differentiation is preserved. No mass effect or midline shift. Basilar cisterns are patent. Ventricular system: Ventricles and sulci are patent and symmetric. Calvarium: Intact. Sinuses and mastoid air cells: Adequate aeration. IMPRESSION: 1. This report is in agreement with the preliminary report by [facility]. 2. Stable hyperdensity in the temporal horn left lateral ventricle. No new areas of hemorrhage. Transcribed Date/Time: 08/30/2019 7:59 AM
[2019-08-30] MEDS: niCARdipine 25 MG in Sodium Chloride 0.9% 250 ML 240 ML IVPB SCH (08:10)
[2019-08-30] MEDS: levETIRAcetam 500 MG TAB PO SCH ×2 (08:41→21:29)
[2019-08-30] MEDS: Famotidine/PF 20 mg/2ml Vial SLOW IVP SCH (08:42)
[2019-08-30] MEDS ORDERED: FLU VACC QS2019-20(6MOS UP)/PF 60 MCG/0.5 ML SYRINGE IM ONE (09:00)
[2019-08-30] MEDS ORDERED: Pantoprazole 40 MG VIAL IVP SCH (09:00)
--- NOTE | 2019-08-30 09:13 | CON ---
DATE OF CONSULTATION: 08/30/2019 REASON FOR CONSULTATION: Critical care management. HISTORY OF PRESENT ILLNESS: The patient is a 54-year-old female, who presented to the emergency room last night with right-sided facial droop and seizure activity. A CT showed a left-sided intraventricular hemorrhage, which is very small. This is consider nonoperative. She has been managed with a nicardipine drip overnight. She has some complaints of back pain. PAST MEDICAL HISTORY: 1. Hypertension. 2. Stroke with right leg paresis. 3. Seizure disorder. 4. Chronic kidney disease. 5. Schizophrenia. PAST SURGICAL HISTORY: 1. Cardiac catheterization. 2. ORIF of the right ulnar area. 3. Appendectomy. ALLERGIES: NONE. SOCIAL HISTORY: , lives with her daughter. Nonsmoker. Does not consume alcohol. FAMILY MEDICAL HISTORY: Remarkable for diabetes. MEDICATIONS: Prior to admission; 1. Keppra 500 mg b.i.d. 2. Atorvastatin 40 mg daily. 3. Aspirin 325 mg daily. 4. Norvasc 5 mg daily. REVIEW OF SYSTEMS: Otherwise, negative. PHYSICAL EXAMINATION: VITAL SIGNS: Temperature 97.8, pulse 111, blood pressure 114/70, and O2 saturation 94%. Intake 1422, output 1330. GENERAL: She is awake, tearful, but in no obvious distress. HEENT: She appears to have slight right-sided facial droop. She has poor dentition. NECK: Slight left carotid bruit. CARDIOVASCULAR: S1 and S2. Tachycardic. 2/6 systolic murmur. LUNGS: Clear to auscultation. ABDOMEN: Soft and nontender. EXTREMITIES: No clubbing, cyanosis, or edema. NEUROLOGIC: Cranial nerves II through XII are intact with the exception of a slight facial droop on the right side. She appears to have sensation intact throughout. Motor strength is decreased in the right leg, otherwise appears normal. LABORATORY DATA: Tox screen negative. Urinalysis shows ketones. Sodium 136, potassium 4.1, chloride 103, CO2 of 21, BUN 11, creatinine 0.9, and glucose 87. INR 1.0. White blood cell count 5, hematocrit 33.5, and platelet count 218. IMAGING DATA: Brain CT was reviewed. Chest x-ray shows no mass, effusion, or infiltrate. ASSESSMENT: 1. Small brain hemorrhage. 2. Seizure at the time of presentation to the ER. PLAN: 1. In my opinion, she can probably be rapidly weaned off the nicardipine drip. I would defer hypertension management to the hospitalist and Neurology Team. 2. Seizure management per Neurology. 3. Can go to the stroke floor from my standpoint. Job ID: [id number]
[2019-08-30] MEDS: Amlodipine 10 MG TAB PO SCH (09:46)
--- NOTE | 2019-08-30 10:51 | CT ---
CTA Angio Head W WO Con CT brain without contrast History: Intraventricular hemorrhage Comparison: CT brain same day Findings: Initially a CT brain was performed without intravenous contrast. Next, CT angiogram of the brain was performed after the intravenous administration of contrast. 3-D rendering was provided. The lentiform density is slightly decreased within the atria and temporal horn left lateral ventricle . The right frontal along with left frontal parietal encephalomalacia similar. Hypodensity of the left cerebellum peripheral aspect similar. On the CT angiogram portion of the examination there continues to be occlusion of the left M1 segment with decreased density of the intraluminal contents indicating slower flow within the left M2 and M3 segments which is collateralized from the ALPESH territory. Basilar artery is patent. Intradural vert ebral arteries are patent. Anterior cerebral arteries are patent. No dural venous sinus thrombosis. Impression: 1. Slight decreased density left choroid plexus hemorrhage. No interval enlargement or new intracrani al hemorrhage. 2. Unchanged left M1 occlusion.
--- NOTE | 2019-08-30 11:02 | PDOC.HOSPP ---
- Subjective Encounter Date: 08/29/19 Encounter Time: 17:00 Subjective: Patient seen and examined for med mngt. Somnolent. No focal deficits. No new complaints. - Objective Vital Signs & Weight: Vital Signs (12 hours) Temp Pulse BP 08/30/19 09:46 110 H 140/85 08/30/19 07:00 99.1 F 08/30/19 04:00 97.8 F Weight Weight 150 lb 9.211 oz Most Recent Monitor Data Heart Rate from ECG 99 NIBP 123/88 NIBP BP-Mean 99 Respiration from ECG 21 SpO2 96 I&O: 08/29/19 08/30/19 08/31/19 06:59 06:59 06:59 Intake Total 1422 25 Output Total 1330 250 Balance 92 -225 Result Diagrams: 08/30/19 04:20 08/30/19 04:20 EKG Reviewed by me: Yes (Tele SR) Hospitalist ROS - Review of Systems ROS unobtainable: due to mental status - Medication Medications: Active Medications Generic Name Dose Route Start Last Admin Trade Name Freq PRN Reason Stop Dose Admin Amlodipine Besylate 10 mg 08/30/19 09:00 08/30/19 09:46 Norvasc PO 10 mg DAILY JANETH Administration Famotidine 20 mg 08/29/19 21:00 08/30/19 08:42 Pepcid SLOW IVP 20 mg Q12HR JANETH Administration Hydralazine HCl 10 mg 08/29/19 19:55 08/29/19 20:11 Apresoline SLOW IVP 10 mg Q2H PRN Administration TO KEEP SBP <140 Sodium Chloride 1,000 mls @ 80 mls/hr 08/29/19 13:00 08/30/19 04:16 Normal Saline 0.9% IV 1,000 mls .[id number] JANETH Administration Nicardipine HCl 25 mg/ Sodium 250 mls @ 0 mls/hr 08/29/19 20:00 08/30/19 08: 10 Chloride IVPB 250 mls INF JANETH Administration Protocol Titrate Labetalol HCl 10 mg 08/29/19 12:56 08/29/19 17:11 Normodyne SLOW IVP 10 ml Q4H PRN Administration SBP > 140 or DBP > 90 Levetiracetam 500 mg 08/29/19 21:00 08/30/19 08:41 Keppra PO 500 mg BID JANETH Administration Ondansetron HCl 4 mg 08/29/19 12:56 08/30/19 09:49 Zofran IVP 4 mg BIDPRN PRN Administration Nausea/Vomiting Pantoprazole Sodium 40 mg 08/30/19 09:00 08/30/19 08:42 Protonix IVP 40 mg DAILY JANETH Administration - Exam General Appearance: NAD Heart: RRR, no gallops Respiratory: CTAB, no rales Gastrointestinal: soft, non-distended, normal bowel sounds Extremities: no edema Psychiatric: somnolent Hosp A/P - Plan DVT proph w/SCDs Toxic Encephalopathy Seizure Intracranial bleed HTN CKD 2 PLAN: On Keppra Cont IVF Nicardipine PRN GI prophylaxis SCDs for prophylaxis
[2019-08-30] MEDS ORDERED: ISOVUE-370 76%-LOCM 1 ML ONE (12:00)
--- NOTE | 2019-08-30 14:58 | CON ---
DATE OF TELEMEDICINE CONSULTATION: 08-30-19 CHIEF COMPLAINT: Seizure. HISTORY OF PRESENT ILLNESS: We are asked to evaluate the patient for her seizure. The patient reports she has had seizures for a while, and she states the seizure is mostly shaking of the arm and leg on the right side, and they occur once a week. I am not 100% sure if she was very accurate with her history upon checking her chart. The patient was unresponsive and shaking at the time of event. She had 1st known seizure in summer in March and was started on Keppra, and she also has a history of stroke, and she is not on any anti-platelet agents for 1 week. She was found to be somewhat confused and had a left-sided intraventricular hemorrhage based on the CT scan. Neurosurgery is also on her case. Speech is also slurred and at baseline , she has weakness on the right side and slurred speech. PREVIOUS MEDICAL HISTORY: Hypertension, stroke, right-sided weakness, and seizures. MEDICATIONS: At home, Keppra 500 mg b.i.d. ALLERGIES: NO KNOWN DRUG ALLERGIES. PAST SURGICAL HISTORY: Right arm surgery and appendectomy. PSYCHIATRIC HISTORY: Bipolar disorder, depression, schizophrenia. SOCIAL HISTORY: No alcohol, drug, or tobacco use. Daughter is the main caregiver. REVIEW OF SYSTEMS: PULMONARY: Negative for shortness of breath or cough. GI: Negative for nausea, vomiting, or diarrhea. NEUROLOGICAL: Positive for weakness and seizure. DERMATOLOGIC: Negative for a rash. GENITOURINARY: Negative for any bladder symptoms. LABORATORY DATA: White count 5.0, hemoglobin 11.1, hematocrit 33.5, platelet count 218. Chemistry; sodium 136, potassium 4.1, chloride 103, bicarb 21, BUN 11, creatinine 0.97. Liver functions are within normal limits. Urine toxicology is negative. Coagulation profile; PT 13.5, INR 1, and PTT 30.2. IMAGING STUDIES: CT of the head was completed, and CT showed small amount of acute blood in the left lateral ventricle. No new hemorrhage in the interval. She has stable hyperdensity in the temporal horn of the left ventricle. CT angiogram with [place] with contrast was completed. She has slightly decreased density of the left choroid plexus hemorrhage. No intracranial hemorrhage and there is M1 occlusion on the left side. PHYSICAL EXAMINATION: VITAL SIGNS: Temperature 98.7, blood pressure 131/82, pulse is 95. GENERAL APPEARANCE: Well-built, well-nourished lady, who seems to be able to follow commands. She is oriented to self and place and can follow commands, but seems sleepy and tired. CHEST: Clear vesicular breathing. CARDIOVASCULAR: S1, S2 heard. No murmurs. ABDOMEN: Soft. NEUROLOGICAL: Higher intellectual functions: As noted about, oriented to self and place. Can follow some commands. Not oriented to time. She states it is July and knows it is 2018. She does not know the date. Cranial nerves: Normal pupils, 2 mm bilaterally. Normal sensation of face on the left, but diminished on the right side. Mild facial asymmetry in the right side. Tongue midline. Normal hearing bilaterally. Normal elevation of palate. Tongue was deviated to the right. Motor: Bulk normal. Tone normal. Strength is 4 on the right and 5 on the left. Muscle groups tested; iliopsoas, hamstrings, quadriceps, ankle dorsiflexion, plantar flexion, deltoid, biceps, triceps, wrist extension and flexion, finger extension and flexion. In the right lower extremity, strength was only 2/5. In the right upper extremity, strength was 4. Deep tendon reflexes 3+ on the right side, 2+ in the left upper extremity, 1 on the left lower extremity. Sensory: She has numbness in the right side of the body. [id number] normal bilaterally. IMPRESSION: The patient is a 54-year-old lady, who has had a left temporal horn intraventricular hemorrhage. She has seizures since March 2019 and at this time , she seems mildly confused, but has residual right-sided weakness which apparently is her baseline. TREATMENT RECOMMENDATIONS: Agree with plans to continue Keppra, perhaps increase the dose from tomorrow to 750 b.i.d., but due to structural lesion, she might still have seizures. I will follow up tomorrow. Job ID: [id number] [facility]
[2019-08-30] MEDS: Famotidine 20 MG TAB PO SCH (21:29)
[2019-08-30] MEDS: Docusate 100 MG CAP PO SCH (21:29)
--- NOTE | 2019-08-30 23:44 | PDOC.HOSPP ---
- Subjective Encounter Date: 08/30/19 Encounter Time: 17:45 Subjective: Patient seen and examined for med mngt. No new focal deficits. No Seizure. No new complaints. No overnight events - Objective Vital Signs & Weight: Vital Signs (12 hours) Temp 08/30/19 16:20 98.8 F 08/30/19 12:00 98.7 F Weight Admit Weight 150 lb Weight 150 lb 9.211 oz Most Recent Monitor Data Heart Rate from ECG 84 NIBP 124/74 NIBP BP-Mean 90 Respiration from ECG 17 SpO2 100 I&O: 08/29/19 08/30/19 08/31/19 06:59 06:59 06:59 Intake Total 1422 754 Output Total 1330 875 Balance 92 -121 Result Diagrams: 08/30/19 04:20 08/30/19 04:20 EKG Reviewed by me: Yes (Tele SR) Hospitalist ROS - Review of Systems Cardiovascular: denies: chest pain, palpitations, orthopnea, paroxysmal noc. dyspnea, edema, light headedness, other Gastrointestinal: denies: nausea, vomiting, abdominal pain, diarrhea, constipation, melena, hematochezia, other - Medication Medications: Active Medications Generic Name Dose Route Start Last Admin Trade Name Freq PRN Reason Stop Dose Admin Amlodipine Besylate 10 mg 08/30/19 09:00 08/30/19 09:46 Norvasc PO 10 mg DAILY JANETH Administration Docusate Sodium 100 mg 08/30/19 21:00 08/30/19 21:29 Colace PO 100 mg BID JANETH Administration Famotidine 20 mg 08/30/19 21:00 08/30/19 21:29 Pepcid PO 20 mg BID JANETH Administration Hydralazine HCl 10 mg 08/29/19 19:55 08/29/19 20:11 Apresoline SLOW IVP 10 mg Q2H PRN Administration TO KEEP SBP <140 Sodium Chloride 1,000 mls @ 50 mls/hr 08/30/19 15:42 08/30/19 16:09 Normal Saline 0.9% IV 1,000 mls .Q20H JANETH Administration Labetalol HCl 10 mg 08/29/19 12:56 08/29/19 17:11 Normodyne SLOW IVP 10 ml Q4H PRN Administration SBP > 140 or DBP > 90 Levetiracetam 500 mg 08/29/19 21:00 08/30/19 21:29 Keppra PO 500 mg BID JANETH Administration Ondansetron HCl 4 mg 08/29/19 12:56 08/30/19 09:49 Zofran IVP 4 mg BIDPRN PRN Administration Nausea/Vomiting - Exam General Appearance: NAD Heart: RRR, no gallops Respiratory: CTAB, no rales Gastrointestinal: soft, non-tender, normal bowel sounds Extremities: no edema Hosp A/P - Plan DVT proph w/SCDs Toxic Encephalopathy Seizure Intracranial bleed HTN CKD 2 h/p CVA with residual Rt sided weakness Type 2 DC PLAN: Cont Keppra Reduce IVF - dc when tolerating PO Started on Amlodipine Transfer to Stroke unit Care transfered to Hospitalist Cont other meds SCDs for prophylaxis Seizure precautions Change Neurochecks to Q4h
[2019-08-31] MEDS: levETIRAcetam 500 MG TAB PO SCH ×2 (09:31→20:57)
[2019-08-31] MEDS: Docusate 100 MG CAP PO SCH ×2 (09:31→20:57)
[2019-08-31] MEDS: Amlodipine 10 MG TAB PO SCH (09:31)
[2019-08-31] MEDS: Famotidine 20 MG TAB PO SCH ×2 (09:31→20:57)
--- NOTE | 2019-08-31 10:57 | PRG ---
DATE OF SERVICE: 08/31/2019 Ms. Gonzalez this morning appears quite well. The weakness that she has been having in her right upper extremity has improved some. She has chronic right lower extremity near paresis , which has been present since prior strokes. Left upper and left lower extremity motor exam are excellent, 5/5 strength in all movements. Mentation is unaffected. Speech is fluid and uninhibited. From Neurosurgery's perspective, she appears stable enough that we can discuss potential transition of care to the hospitalist team. We will reach out today to talk this over. Job ID: [id number]
[2019-08-31] MEDS: Sodium Chloride 0.9% 1,000 ML IV SCH (12:19)
--- NOTE | 2019-08-31 16:13 | PDOC.HOSPP ---
- Subjective Encounter Date: 08/31/19 Encounter Time: 10:00 Subjective: Pt seen for followup re; intracranial bleed. Denies chest pain or shortness fo breath. - Objective Vital Signs & Weight: Vital Signs (12 hours) Temp Pulse Pulse Pulse Pulse Resp BP 08/31/19 15:34 98.2 F 101 H 15 08/31/19 11:47 97.3 F L 106 H 16 08/31/19 11:06 155 H 109 H 122 H 08/31/19 09:31 95 135/78 08/31/19 09:21 08/31/19 06:50 98.5 F 95 20 BP BP BP Pulse Ox 08/31/19 15:34 119/62 99 08/31/19 11:47 136/74 97 08/31/19 11:06 132/75 136/74 08/31/19 09:31 08/31/19 09:21 100 08/31/19 06:50 135/78 100 Weight Admit Weight 150 lb Weight 150 lb 8 oz Most Recent Monitor Data Heart Rate from ECG 101 NIBP 129/82 NIBP BP-Mean 97 Respiration from ECG 20 SpO2 100 I&O: 08/30/19 08/31/19 09/01/19 06:59 06:59 05:59 Intake Total 1422 1778 Output Total 1330 1370 Balance 92 408 Result Diagrams: 08/30/19 04:20 08/30/19 04:20 Additional Labs: labs and MARs reviewed by me EKG Reviewed by me: Yes (Tele; NSR) Hospitalist ROS - Review of Systems Gastrointestinal: denies: nausea, vomiting, abdominal pain, diarrhea, constipation, melena, hematochezia Genitourinary: denies: dysuria, frequency, incontinence, hematuria, retention - Medication Medications: Active Medications Generic Name Dose Route Start Last Admin Trade Name Freq PRN Reason Stop Dose Admin Amlodipine Besylate 10 mg 08/30/19 09:00 08/31/19 09:31 Norvasc PO 10 mg DAILY JANETH Administration Docusate Sodium 100 mg 08/30/19 21:00 08/31/19 09:31 Colace PO 100 mg BID JANETH Administration Famotidine 20 mg 08/30/19 21:00 08/31/19 09:31 Pepcid PO 20 mg BID JANETH Administration Hydralazine HCl 10 mg 08/29/19 19:55 08/29/19 20:11 Apresoline SLOW IVP 10 mg Q2H PRN Administration TO KEEP SBP <140 Sodium Chloride 1,000 mls @ 50 mls/hr 08/30/19 15:42 08/31/19 12:19 Normal Saline 0.9% IV 1,000 mls .Q20H JANETH Administration Labetalol HCl 10 mg 08/29/19 12:56 08/29/19 17:11 Normodyne SLOW IVP 10 ml Q4H PRN Administration SBP > 140 or DBP > 90 Levetiracetam 500 mg 08/29/19 21:00 08/31/19 09:31 Keppra PO 500 mg BID JANETH Administration Ondansetron HCl 4 mg 08/29/19 12:56 08/30/19 09:49 Zofran IVP 4 mg BIDPRN PRN Administration Nausea/Vomiting - Exam General Appearance: NAD Eye: anicteric sclera ENT: moist mucosa Neck: supple Heart: RRR Respiratory: CTAB Gastrointestinal: soft, non-tender Extremities: no clubbing Neurological - other findings: R weakness Psychiatric: normal behavior Hosp A/P - Plan DVT proph w/SCDs IMPRESSION: Seizure Intracranial bleed HTN CKD 2 Type 2 PR PLAN: Pt is on Keppra Started on Amlodipine SCDs for prophylaxis Seizure precautions
[2019-09-01] MEDS: Sodium Chloride 0.9% 1,000 ML IV SCH (05:21)
[2019-09-01] MEDS: Amlodipine 10 MG TAB PO SCH (09:50)
[2019-09-01] MEDS: Famotidine 20 MG TAB PO SCH ×2 (09:50→21:00)
[2019-09-01] MEDS: levETIRAcetam 500 MG TAB PO SCH ×2 (09:50→21:00)
[2019-09-01] MEDS: Docusate 100 MG CAP PO SCH ×2 (09:57→21:01)
--- NOTE | 2019-09-01 15:49 | PDOC.HOSPP ---
- Subjective Encounter Date: 09/01/19 Encounter Time: 07:20 Subjective: Pt seen for followup re: seizure. Says she feels better, no complaints. - Objective Vital Signs & Weight: Vital Signs (12 hours) Temp Pulse Resp BP Pulse Ox 09/01/19 11:45 98.9 F 86 16 139/80 100 09/01/19 09:50 74 09/01/19 08:20 99.2 F 74 16 129/80 100 09/01/19 08:00 100 09/01/19 04:00 97.9 F 89 18 134/80 100 Weight Admit Weight 150 lb Weight 150 lb 6.4 oz Most Recent Monitor Data Heart Rate from ECG 101 NIBP 129/82 NIBP BP-Mean 97 Respiration from ECG 20 SpO2 100 I&O: 08/31/19 09/01/19 09/02/19 07:59 06:59 06:59 Intake Total Output Total Balance Result Diagrams: 08/30/19 04:20 08/30/19 04:20 Additional Labs: Labs and MARs reviewed by me EKG Reviewed by me: Yes (Tele: NSR) Hospitalist ROS - Review of Systems Cardiovascular: denies: chest pain, palpitations, orthopnea, paroxysmal noc. dyspnea, edema, light headedness Neurological: denies: weakness, numbness, incoordination, change in speech, confusion, seizures - Medication Medications: Active Medications Generic Name Dose Route Start Last Admin Trade Name Freq PRN Reason Stop Dose Admin Amlodipine Besylate 10 mg 08/30/19 09:00 09/01/19 09:50 Norvasc PO 10 mg DAILY JANETH Administration Docusate Sodium 100 mg 08/30/19 21:00 09/01/19 09:57 Colace PO Not Given BID JANETH Famotidine 20 mg 08/30/19 21:00 09/01/19 09:50 Pepcid PO 20 mg BID JANETH Administration Hydralazine HCl 10 mg 08/29/19 19:55 08/29/19 20:11 Apresoline SLOW IVP 10 mg Q2H PRN Administration TO KEEP SBP <140 Sodium Chloride 1,000 mls @ 50 mls/hr 08/30/19 15:42 09/01/19 05:21 Normal Saline 0.9% IV 1,000 mls .Q20H JANETH Administration Labetalol HCl 10 mg 08/29/19 12:56 08/29/19 17:11 Normodyne SLOW IVP 10 ml Q4H PRN Administration SBP > 140 or DBP > 90 Levetiracetam 500 mg 08/29/19 21:00 09/01/19 09:50 Keppra PO 500 mg BID JANETH Administration Ondansetron HCl 4 mg 08/29/19 12:56 08/30/19 09:49 Zofran IVP 4 mg BIDPRN PRN Administration Nausea/Vomiting - Exam General Appearance: NAD Eye: anicteric sclera ENT: moist mucosa Neck: supple Heart: RRR Respiratory: CTAB Gastrointestinal: soft, non-tender Extremities: no clubbing Musculoskeletal: normal tone, normal strength Hosp A/P - Plan IMPRESSION: 1. Seizure 2. Intracranial bleed 3. HTN 4. CKD 2 5. Type 2 PA PLAN: Continue Keppra HTN controlled, continue Amlodipine SCDs for prophylaxis Seizure precautions
[2019-09-02] MEDS: Sodium Chloride 0.9% 1,000 ML IV SCH (04:23)
[2019-09-02] MEDS: Docusate 100 MG CAP PO SCH (08:55)
[2019-09-02] MEDS: Amlodipine 10 MG TAB PO SCH (08:55)
[2019-09-02] MEDS: levETIRAcetam 500 MG TAB PO SCH (08:55)
[2019-09-02] MEDS: Famotidine 20 MG TAB PO SCH (08:55)
[2019-09-02 12:01] VITALS: BMI 24.3
--- NOTE | 2019-09-02 12:41 | PDOC.HOSPP ---
- Subjective Encounter Date: 09/02/19 Encounter Time: 07:20 Subjective: Pt seen for followup re: seizure. feels well, no complaints today. - Objective Vital Signs & Weight: Vital Signs (12 hours) Temp Pulse Pulse Pulse Resp BP BP 09/02/19 12:00 98 F 84 16 09/02/19 09:43 108 H 88 151/89 H 09/02/19 08:55 79 141/79 H 09/02/19 08:50 98.8 F 79 16 09/02/19 03:07 97.5 F L 93 20 BP BP Pulse Ox 09/02/19 12:00 122/68 99 09/02/19 09:43 134/75 09/02/19 08:55 09/02/19 08:50 141/79 H 92 L 09/02/19 03:07 128/72 100 Weight Admit Weight 150 lb Weight 155 lb Most Recent Monitor Data Heart Rate from ECG 101 NIBP 129/82 NIBP BP-Mean 97 Respiration from ECG 20 SpO2 100 I&O: 09/01/19 09/02/19 09/03/19 06:59 06:59 06:59 Intake Total 3030 Output Total 1350 Balance 1680 Result Diagrams: 08/30/19 04:20 08/30/19 04:20 Additional Labs: Labs and MARs reviewed by fl Hospitalist ROS - Review of Systems Cardiovascular: denies: chest pain, palpitations, orthopnea, paroxysmal noc. dyspnea, edema, light headedness Gastrointestinal: denies: nausea, vomiting, abdominal pain, diarrhea, constipation, melena, hematochezia - Medication Medications: Active Medications Generic Name Dose Route Start Last Admin Trade Name Cyrusq PRN Reason Stop Dose Admin Amlodipine Besylate 10 mg 08/30/19 09:00 09/02/19 08:55 Norvasc PO 10 mg DAILY JANETH Administration Docusate Sodium 100 mg 08/30/19 21:00 09/02/19 08:55 Colace PO 100 mg BID JANETH Administration Famotidine 20 mg 08/30/19 21:00 09/02/19 08:55 Pepcid PO 20 mg BID JANTEH Administration Hydralazine HCl 10 mg 08/29/19 19:55 08/29/19 20:11 Apresoline SLOW IVP 10 mg Q2H PRN Administration TO KEEP SBP <140 Labetalol HCl 10 mg 08/29/19 12:56 08/29/19 17:11 Normodyne SLOW IVP 10 ml Q4H PRN Administration SBP > 140 or DBP > 90 Levetiracetam 500 mg 08/29/19 21:00 09/02/19 08:55 Keppra PO 500 mg BID JANETH Administration Ondansetron HCl 4 mg 08/29/19 12:56 08/30/19 09:49 Zofran IVP 4 mg BIDPRN PRN Administration Nausea/Vomiting - Exam General Appearance: awake alert Eye: anicteric sclera ENT: no oropharyngeal lesions, moist mucosa Neck: supple, no JVD Heart: RRR Respiratory: CTAB, no rales Gastrointestinal: soft, non-tender Extremities: no clubbing Skin: no rashes Psychiatric: normal affect, normal behavior Hosp A/P - Plan PT/OT, out of bed/ambulate IMPRESSION: 1. Seizure 2. Intracranial bleed 3. HTN 4. CKD 2 5. Type 2 PR PLAN: No seizure recurrence, on Keppra HTN controlled SCDs for prophylaxis Seizure precautions Rehab vs SNU
[2019-09-02 15:53] VITALS: BP 127/73; TEMP 97.5
--- NOTE | 2019-09-03 01:38 | DIS ---
DATE OF ADMISSION: 08/29/2019 DATE OF DISCHARGE: 09/02/2019 PRIMARY CARE PROVIDER: Soco Ramirez, Nurse practitioner. DISCHARGE DIAGNOSES: 1. Seizure. 2. Intracranial hemorrhage. CONSULTATIONS DURING THIS HOSPITALIZATION: Neurology, Dr. De León. CONDITION OF PATIENT ON THE DAY OF DISCHARGE: Stable. I assessed Ms. Gonzalez on the day of discharge. Please refer to my hospitalist progress note dated 09/02/2019, for further details regarding this [id number] encounter. DISCHARGE MEDICATIONS: 1. Amlodipine 10 mg daily. 2. Lipitor 40 mg at bedtime. 3. Keppra 500 mg 2 times a day. 4. Zoloft 50 mg daily. HOSPITAL COURSE: Ms. Gonzalez is a pleasant 54-year-old lady who was admitted to [facility] on 08/29/2019, for seizure. She was found to have intraventricular hemorrhage. She was seen by Neurosurgery Service. She was also seen by Neurology Service. Keppra was continued. Aspirin was discontinued. Neurosurgical Service felt that this was nonsurgical. Her care was transferred to Hospitalist Service. She was seen by Therapy Services. She was recommended inpatient rehab versus nursing home. The patient and family did not wish to go to inpatient rehab or nursing home. They wished to go home with home health. She is being discharged home with home health for physical therapy. POST-DISCHARGE FOLLOWUP: The patient is advised to follow up with Neurosurgery Service in 3 to 4 weeks and with her primary care provider in 3 to 5 days. Many thanks for allowing me to participate in your patient's care. Please feel free to contact me with any questions or concerns. DIET: Heart healthy diet. ACTIVITY: As tolerated. DISCHARGE DESTINATION: Home. TIME SPENT: Total amount of time spent coordinating this discharge: 32 minutes. Job ID: [id number]
== END 2019-09-02 17:59 | disposition home health service (06) | DRG 64 ==
LOC: ERS 10:34 → CCU 13:23 → 2SE 08-31 07:06
PROVIDERS: ADMIT Neurological Surgery; ATTEND Neurological Surgery
PROC: B020ZZZ Computerized Tomography (CT Scan) of Brain (ICD-10-PCS; principal; 2019-08-29)
PROC: B020Y0Z Computerized Tomography (CT Scan) of Brain using Other Contrast, Unenhanced and Enhanced (ICD-10-PCS; 2019-08-30)
DX: I61.5 Nontraumatic intracerebral hemorrhage, intraventricular (principal); G92 Toxic encephalopathy; I21.A1 Myocardial infarction type 2; I69.351 Hemiplegia and hemiparesis following cerebral infarction affecting right dominant side; F20.9 Schizophrenia, unspecified; F31.9 Bipolar disorder, unspecified; R29.706 NIHSS score 6; N18.2 Chronic kidney disease, stage 2 (mild); I12.9 Hypertensive chronic kidney disease with stage 1 through stage 4 chronic kidney disease, or unspecified chronic kidney disease; R29.810 Facial weakness; G40.909 Epilepsy, unspecified, not intractable, without status epilepticus; Z79.899 Other long term (current) drug therapy; Z90.49 Acquired absence of other specified parts of digestive tract; Z79.82 Long term (current) use of aspirin
CPT/HCPCS: 36415; 51702; 70450; 70496; 71045; 80053; 80177; 80306; 80307; 81003; 81015; 82140; 82550; 82553; 83690; 83735; 83880; 84146; 84443; 84484; 85025; 85610; 85730; 87040; 93005; 96365; 96375; A4353; C9113; J0360; J1953; J2060; J2405; J7050; Q9966; S0028

== ENCOUNTER 2019-09-27 19:05 | Emergency (ER) | payer MEDICARE, MEDICAID | END 2019-09-27 20:08 | disposition home or self-care (01) | LOC: ERS 19:05 | DX: G40.909 Epilepsy, unspecified, not intractable, without status epilepticus (principal); Z76.0 Encounter for issue of repeat prescription; I10 Essential (primary) hypertension; F31.9 Bipolar disorder, unspecified; F20.9 Schizophrenia, unspecified; Z79.899 Other long term (current) drug therapy | CPT/HCPCS: 99282 ==

== ENCOUNTER 2019-11-25 22:55 | Inpatient (IN) | payer MEDICARE, MEDICAID ==
[2019-11-25] MEDS ORDERED: Acetaminophen 650 MG Suppository ONE (23:07)
--- NOTE | 2019-11-25 23:16 | RAD ---
XR Chest 1 View Portable HISTORY: Seizure. COMPARISON: 08/29/2019 study FINDINGS: Heart size and mediastinum are within normal limits. The lungs are clear of infiltrates. IMPRESSION: No active intrathoracic disease.
[2019-11-25 23:20] LABS: #Lymphocytes 1.2 thou/uL (1.20-3.40); #Monocytes 0.3 thou/uL (0.11-0.59); #Neutrophils 3.9 thou/uL (1.40-6.50); %Basophils 0.5 % (0.0-1.0); %Eosinophils 0.2 % (0.0-10.0); %Lymphocytes 21.8 % (21.0-51.0); %Monocytes 5.4 % (0.0-10.0); %Neutrophils 72.1 % (42.0-75.0); Hemoglobin 11.4 g/dL (12.0-16.0); Mean Corpuscular HGB CONC 31.3 g/dL (32.0-36.0); Mean Corpuscular Hemoglobin 26.1 pg (27.0-31.0); Mean Corpuscular Volume 83.6 fL (78.0-98.0); Mean Platelet Volume 6.6 fL (7.4-10.4); Platelet Count 183 thou/uL (130-400); RBC Distribution Width 12.5 % (11.5-14.5); Red Blood Cell (RBC) Count 4.36 mill/uL (4.20-5.40); White Blood Cell (WBC) Count 5.5 thou/uL (4.8-10.8)
[2019-11-25] MEDS ORDERED: Piperacillin/Tazobactam 4.5 GM VIAL ONE (23:22)
--- NOTE | 2019-11-25 23:44 | CT ---
CT Brain WO Con HISTORY: Seizure. COMPARISON: 08/30/2019 study. FINDINGS: There is generalized ventricular and sulcal prominence. Old infarct in the right frontal re gion is a stable finding. Chronic white matter changes again noted. Encephalomalacia changes of the left posterior frontal region also seen. Mastoid air cells and visualized sinuses are clear. IMPRESSION: No acute intracranial abnormality stable exam.
[2019-11-25 23:45] LABS: ALT (SGPT) 7 U/L (8-55); AST (SGOT) 23 U/L (5-34); Albumin 4.2 g/dL (3.5-5.0); Alkaline Phosphatase 60 U/L (40-110); Anion Gap 9 mmol/L (10-20); BUN (Urea Nitrogen) 14 mg/dL (9.8-20.1); Bilirubin, Total 0.8 mg/dL (0.2-1.2); Calc. Creatinine Clearance 0 mL/min (70-130); Calcium 9.8 mg/dL (7.8-10.44); Carbon Dioxide 27 mmol/L (22-29); Chloride 101 mmol/L (98-107); Estimated GFR-MDRD 55; Globulin 3.7 g/dL (2.4-3.5); Glucose 114 mg/dL (70-105); Potassium 3.6 mmol/L (3.5-5.1); Protein, Total 7.9 g/dL (6.0-8.3); Sodium 133 mmol/L (136-145)
[2019-11-26 00:19] LABS: Bilirubin Negative (Negative); Blood, Urine Negative (Negative); Clarity Clear (Clear); Glucose, Urine (Dipstick) Normal (Negative); Leukocyte Negative Leu/uL (Negative); Nitrite Negative (Negative); Protein, Urine (Dipstick) Negative (Neg-Trace); Urobilinogen Normal mg/dL (Less than 2)
[2019-11-26] MEDS ORDERED: levETIRAcetam 1000 MG/100 ML PREMIX BAG ONE (01:26)
[2019-11-26 10:19] LABS: Cardiac Risk 1.9 (Less than 4.5)
[2019-11-26 16:24] VITALS: BMI 22.7
[2019-11-26] MEDS: Acetaminophen 325 MG TAB PO PRN (17:22)
--- NOTE | 2019-11-26 17:45 | PDOC.EVN ---
Event Note - Event Note Event Note: H & P dictated seizure, MRI, EEG and neuro consult.
[2019-11-26] MEDS: Atorvastatin Calcium 40 MG TAB PO SCH (20:17)
--- NOTE | 2019-11-26 20:48 | HP ---
HISTORY OF PRESENT ILLNESS: This is a 54-year-old female with a history of hypertension, hyperlipidemia, seizure episode, and left side intraventricular hemorrhage in July 2019 and is on Keppra, presented to the ER with a postictal state. Around 6:30 a.m., she was back at her baseline, alert and oriented x4. She has residual right-sided deficit from the past and her NIH scale was 8 this morning. During my visit, she had left side pupil about 3 mm dilated compared to the right side, which is 2 mm. The patient is alert and oriented, but she is not able to verbalize any meaningful communication. She is going to go for MRI. She also had lumbar puncture done prior to my visit and it is unremarkable. The patient is admitted for further care. I talked to Dr. Buck, who is on-call for neurology. MRI and MRA, as well as electroencephalogram ordered. REVIEW OF SYSTEMS: Not obtainable from the patient. SOCIAL HISTORY: Not obtained directly from the patient, but review of the chart shows she does not use alcohol or drugs or smokes. There is daughter, who takes care of her. 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 ALLERGIES: NO KNOWN DRUG ALLERGIES. PSYCHIATRIC HISTORY: Bipolar disorder, depression, and schizophrenia. MEDICATIONS: Medications that were discharged in August 2019 shows: 1. Keppra 500 mg twice a day. 2. Norvasc 10 mg daily. 3. Lipitor 40 mg at bedtime. 4. Zoloft 50 mg daily. PHYSICAL EXAMINATION: VITAL SIGNS: Today, she is afebrile. She is normotensive. GENERAL: The patient is alert and oriented x1. She has significant dysarthria. NEURO: She has left pupil 3 mm dilation. She has right-sided deficits in both upper and lower extremities. Sensation seems to be intact. Complete neuro exam not performed due to patient's condition. CARDIOVASCULAR: She has regular rate and rhythm without murmurs, rubs, or gallops. LUNGS: Clear to auscultation bilaterally without wheezing, rales, or rhonchi. ABDOMEN: Soft, nontender, and nondistended. Good bowel sounds. EXTREMITIES: Her right-sided upper extremity is 2/5 in strength and right lower extremity is 3/5. 3/5 in left upper and lower extremities. LABORATORY DATA: Sodium is 133, creatinine is 1.23, LDL is 44, triglycerides 46 , and cholesterol 112. UA looks quite benign. Keppra level is less than 2. CT head, no acute intracranial abnormality. Chest x-ray, no active intrathoracic disease. IMPRESSION AND PLAN: 1. This is a 54-year-old female presenting with history of cerebrovascular accident x2, right-sided deficits, hypertension, hyperlipidemia, and seizure in the past, presenting with seizure episode. It appears that EMS brought her, but seizure seems to be unwitnessed. She had a postictal state upon arrival to the ER. Her NIH score was 8. The patient will be admitted to the Neuro floor, frequent neuro-check, fall and aspiration precautions. MRI, MRA, 2D echo as well as routine electroencephalogram. PT/OT and speech therapy. Neurology consult placed and I talked to Dr. Buck. If MRI non-revealing, then bedside swallow study, then we can start her diet. Since Keppra level is low, I will increase the Keppra dose to 750 twice a day IV and then will transition to p.o. when she is more stable. 2. CSF study is pending, but it appears CSF analysis was quite unremarkable. 3. Hyponatremia, which is mild. We will give her a litre of NS and follow the electrolyte panel. 4. History of intracranial hemorrhage. I will refrain putting her on deep venous thrombosis prophylaxis anticoagulant for now. SCDs only. Rule out acute ICH or other abnormalities with MRI, initial CT head negative. 5. Rest of the management based on clinical course. Job ID: [id number] [facility]
[2019-11-26] MEDS ORDERED: levETIRAcetam 500 MG TAB PO SCH (21:00)
--- NOTE | 2019-11-27 00:07 | CON ---
DATE OF CONSULTATION: 11/26/2019 Ms. Gonzalez was readmitted due to recurrent seizure. Keppra level was zero. She has been noncompliant, which she claims is related to financial issues. She has a history of schizophrenia and poor compliance. She was seen last year for right MCA stroke. She was put on aspirin and a statin, although she has not been compliant with this either. She has had a temperature of 102.4. The source of her fevers are uncertain at this point. She has been loaded with a gram of Keppra. She had an EEG done earlier, which looked to be postictal. She is still fairly lethargic, but able to answer questions and follow commands. She is not having any abnormal movements. I would continue her maintenance of Keppra 500 mg twice a day. Job ID: [id number]
[2019-11-27] MEDS: Acetaminophen 325 MG TAB PO PRN (00:12)
[2019-11-27] MEDS ORDERED: Acetaminophen 325 MG TAB PO PRN (00:58)
[2019-11-27 01:21] LABS: Mean Corpuscular Volume 83.3 fL (78.0-98.0)
[2019-11-27 01:33] LABS: Hemoglobin 10.4 g/dL (12.0-16.0); Lactic Acid 0.8 mmol/L (0.5-2.2); Lymphocytes 46 % (21-51); MDiff Complete? YES; Mean Corpuscular HGB CONC 33.5 g/dL (32.0-36.0); Mean Corpuscular Hemoglobin 27.9 pg (27.0-31.0); Mean Platelet Volume 6.4 fL (7.4-10.4); Monocytes 16 % (0-10); Neutrophil 38 % (42-75); Platelet Count 91 thou/uL (130-400); Platelet Morphology Comment Appears Decreased; RBC Distribution Width 12.3 % (11.5-14.5); Red Blood Cell (RBC) Count 3.71 mill/uL (4.20-5.40); White Blood Cell (WBC) Count 1.9 thou/uL (4.8-10.8)
[2019-11-27 01:35] LABS: Anion Gap 13 mmol/L (10-20); BUN (Urea Nitrogen) 13 mg/dL (9.8-20.1); Calc. Creatinine Clearance 63 mL/min (70-130); Calcium 8.5 mg/dL (7.8-10.44); Carbon Dioxide 21 mmol/L (22-29); Chloride 104 mmol/L (98-107); Estimated GFR-MDRD 68; Glucose 80 mg/dL (70-105); Sodium 134 mmol/L (136-145)
[2019-11-27 04:54] LABS: Hemoglobin A1c 5.3 % (4.0-6.0)
[2019-11-27] MEDS: Amlodipine 10 MG TAB PO SCH (10:30)
--- NOTE | 2019-11-27 11:41 | PDOC.HOSPP ---
- Subjective Subjective: she is almost at cry spell about not having meds at home. no futher seizure episodes. - Objective Vital Signs & Weight: Vital Signs (12 hours) Temp Pulse Resp BP Pulse Ox 11/27/19 10:30 79 11/27/19 07:15 98.2 F 79 16 138/78 100 11/27/19 04:00 99.8 F H 83 18 149/82 H 98 11/27/19 00:00 100.3 F H 92 16 139/83 100 Weight Weight 140 lb 14.006 oz I&O: 11/26/19 11/27/19 11/28/19 06:59 06:59 06:59 Intake Total 500 Balance 500 Result Diagrams: 11/27/19 01:09 11/27/19 01:09 Hospitalist ROS - Medication Medications: Active Medications Generic Name Dose Route Start Last Admin Trade Name Freq PRN Reason Stop Dose Admin Amlodipine Besylate 10 mg 11/27/19 09:00 11/27/19 10:30 Norvasc PO 10 mg DAILY JANETH Administration Atorvastatin Calcium 40 mg 11/26/19 21:00 11/26/19 20:17 Lipitor PO 40 mg HS JANETH Administration Levetiracetam 750 mg/ Sodium 107.5 mls @ 200 mls/hr 11/26/19 21:00 11/27/19 10:30 Chloride IVPB 107.5 mls BID JANETH Administration Sertraline HCl 50 mg 11/27/19 09:00 11/27/19 10:30 Zoloft PO 50 mg DAILY JANETH Administration - Exam General Appearance: NAD, awake alert Eye: anicteric sclera ENT: normocephalic atraumatic Neck: supple, symmetric Heart: RRR, no murmur Respiratory: CTAB, no wheezes Gastrointestinal: soft, non-distended, no guarding Neurological: no focal deficits Hosp A/P - Plan old records reviewed/req Seizure, of -EEG - postical -appreciate the help from neurologist -TSH in nl range Hx of r. hemiparesis in the past -PT evaluation Hyponatremia -mild, better OZZIE -resolved w.. fluids Leukopenia and thrombocytopenia --chronic, need outpt workup Anemia of chronic disease Fever - last night and y'day -- resolved --if recur, need rpt blood cx -prior armen of admissoin -- no growth Hx of ICH --no aC PT evaluation if good, prob dc home - CM c/s -- can we help her to get a month supply of keppra?
[2019-11-27] MEDS ORDERED: Lorazepam 0.5 MG TAB PO PRN (16:30)
--- NOTE | 2019-11-27 18:21 | MRI ---
MRI OF BRAIN PERFORMED WITH AND WITHOUT CONTRAST ENHANCEMENT: 11/27/19 HISTORY: Seizure disorder. Previous CVA. Left sided weakness. COMPARISON: A CT examination of 11/25/19. CT angio of the head of 08/30/19. MRI of the brain of 04/24/19. There is generalized ventricular and sulcal prominence. Old infarcts are again noted with associated encephalomalacia change. This includes an area within the right frontal lobe and left posterior front al lobe. On the gradient sequence, I see no evidence for hemorrhage and no restricted diffusion is no darya to suggest any component of an acute infarct. Post contrast images show diminished flow within th e left middle cerebral artery vessels which has been noted on previous studies. IMPRESSION: No acute intracranial abnormalities. Old infarcts with atrophy and chronic white matter changes noted . POS: JUDY
--- NOTE | 2019-11-27 18:25 | MRI ---
MRA OF BRAIN PERFORMED WITHOUT CONTRAST ENHANCEMENT: 11/27/19 HISTORY: Patient with previous strokes. Some left sided weakness. COMPARISON: CT angio of the head of 08/30/[address] the CT brain study done yesterday. Technically a good examination was obtained. Once again, there is an occlusion at the left M1 segment level. Very minimal flow is seen within some of the left Sylvian branches of the left middle cerebra l artery. The flow within the anterior cerebral arteries is unremarkable and right middle cerebral ar danyell is normal. Vertebrobasilar circulation also appears unremarkable. IMPRESSION: Stable overall examination. The markedly diminished flow related to the left M1 occlusion which was n oted on a previous CT angio of the head is a stable finding. POS: JUDY
[2019-11-27] MEDS: Atorvastatin Calcium 40 MG TAB PO SCH (22:15)
[2019-11-27] MEDS: levETIRAcetam 500 MG TAB PO SCH (22:15)
[2019-11-28] MEDS: levETIRAcetam 500 MG TAB PO SCH (08:41)
[2019-11-28] MEDS: Amlodipine 10 MG TAB PO SCH (08:41)
[2019-11-28 11:34] VITALS: BP 93/54; TEMP 98.8
--- NOTE | 2019-11-28 20:17 | DIS ---
DATE OF ADMISSION: 11/26/2019 DATE OF DISCHARGE: 11/28/2019 DISCHARGE DIAGNOSES: 1. Seizures with underlying history of known history and noncompliance in taking the antileptics. 2. History of right hemiparesis in the past. 3. Hyponatremia, mild. 4. Acute kidney injury, resolved with hydration. 5. Leukopenia and thrombocytopenia, chronic. 6. Anemia of chronic disease. 7. History of intracranial hemorrhage remotely. DISCHARGE MEDICATIONS: 1. Norvasc 10 mg daily. 2. Lipitor 40 mg daily. 3. Keppra 500 mg twice a day oral solution. 4. Sertraline (Zoloft) 50 mg daily. PHYSICAL EXAMINATION: VITAL SIGNS: On the day of discharge, her temperature is 98.4, pulse is 80, blood pressure is 114/61, saturating 95% on room air. GENERAL: The patient is sitting in the room. She is not in any acute distress. She looks malnourished. CARDIOVASCULAR: Regular rate and rhythm without murmur, rubs, or gallops. LUNGS: Clear to auscultation bilaterally without wheezing, rales, or rhonchi. ABDOMEN: Soft, nontender, nondistended. Good bowel sounds. HOSPITAL COURSE: This is a 54-year-old female with a history of CVA with right hemiparesis as well as seizure and known for being noncompliant and presented with recurrent seizures. Her Keppra level was 0. Neurology consulted. she is known to the neurologist Dr. Buck. She had a right MCA stroke last year leading to right hemiparesis. She was on Lipitor as well as Keppra and had poor compliance history. She had one episode of high temperature of 102.4. Her blood cultures were negative x48 hours. Flu is negative. The MRI and MRA did not show any acute intracranial abnormalities other than occlusion of the left M1 segment level, which is seen in the previous CT angiogram. Her electroencephalogram are routine done during the postictal phase. Neurology did evaluate her. No new recommendations other than continuing her original home regimen of Keppra 500 twice a day. Instead of tablet at this time, script for Keppra solution is provided. The patient is clinically stable to be discharged home. I discussed with shoe parts caser. Likely to be setting up for primary care physician. Then, she will have hopefully compliance with followup with them. Home healthcare has been arranged for long-term as well as physical therapy. DISCHARGE INSTRUCTIONS: 1. Activity: As tolerated. 2. Diet: Regular diet. 3. Followup: Follow up with new primary care physician as soon as possible. Discharge time took over 30 minutes. Job ID: [id number] MTDD
--- NOTE | 2019-11-29 05:48 | PQF ---
[employer] Electrical Technician Crystal Reports Winform ViewerSHRINERS HOSPITALS FOR CHILDRENCORINE LOPEZ STEPHANIE BAUTISTA [id number] [address] [place] [address] [id number] CLINICAL DOCUMENTATION CLARIFICATION FORM: POST DISCHARGE Addendum to original discharge summary date: ____ Late entry note date: __ DATE: 11/29/2019 ATTN: STEPHANIE BAUTISTA Please exercise your independent, professional judgment in responding to the clarification form. Clinical indicators are provided on the bottom of this form for your review Please check appropriate box(es): [ ] Sepsis [ ] Severe sepsis [ ] Septic Shock [ ] Localized infection without sepsis [ ] Other diagnosis [ x ] Unable to determine In addition, please specify: Present on Admission (POA): [ ] Yes [ ] No [ x] Unable to determine For continuity of documentation, please document condition throughout progress notes and discharge summary. Thank You. CLINICAL INDICATORS - SIGNS / SYMPTOMS / LABS Pulse rate 141 on 11/26 - Documented in ED report pg#2 Respiration rate 33 on 11/26 - Documented in ED report pg#2 SIRS - Documented in ED report pg#10 Fever - Documented in ED report pg#10 WBC level 1.9 on 11/27 - Documented in Laboratory BP 103/57 on and 93/54 on 11/28 - Documented in Vital Signs RISK FACTORS Recurrent Seizures - Documented in ED report pg#2 HTN She had postictal state upon arrival - Documented in H&P on 11/26 by STEPHANIE BAUTISTA OZZIE - Documented in DS on 11/28 by STEPHANIE BAUTISTA TREATMENTS: Vancomycin - Documented in Medication Report Keppra 500mg twice a day - Documented in DS on 11/28 by STEPHANIE BAUTISTA [employer] Crystal Reports Winform Viewer (This form is maintained as a part of the permanent medical record) 2014 [employer]. All Rights Reserved [email or web address] this is not sepsis presentation, empiric vancomycin does not attest sepsis. non-infectious related SIRS. MTDD
== END 2019-11-28 16:44 | disposition home health service (06) | DRG 100 ==
LOC: ERS 22:55 → ERHOLD 11-26 01:33 → 2SE 11-26 16:05
PROVIDERS: ADMIT Internal Medicine; ATTEND Internal Medicine
DX: G40.909 Epilepsy, unspecified, not intractable, without status epilepticus (principal); R40.2112 Coma scale, eyes open, never, at arrival to emergency department; R40.2342 Coma scale, best motor response, flexion withdrawal, at arrival to emergency department; R40.2222 Coma scale, best verbal response, incomprehensible words, at arrival to emergency department; I69.351 Hemiplegia and hemiparesis following cerebral infarction affecting right dominant side; E87.1 Hypo-osmolality and hyponatremia; N17.9 Acute kidney failure, unspecified; I10 Essential (primary) hypertension; E78.5 Hyperlipidemia, unspecified; F31.9 Bipolar disorder, unspecified; F20.9 Schizophrenia, unspecified; Z79.899 Other long term (current) drug therapy; R29.708 NIHSS score 8; D72.819 Decreased white blood cell count, unspecified; D69.6 Thrombocytopenia, unspecified; D64.9 Anemia, unspecified; Z91.14 Patient's other noncompliance with medication regimen
CPT/HCPCS: 36415; 51701; 70450; 70544; 70553; 71045; 80048; 80053; 80061; 80177; 81003; 83036; 83605; 84443; 84484; 85025; 87040; 87804; 93005; 93306; 95816; 95819; 96365; 96367; 96375; 99292; J1953; J2543; J3370; J3490

== ENCOUNTER 2020-04-10 10:09 | Outpatient (CLI) | payer MEDICARE, MEDICAID ==
--- NOTE | 2020-04-10 11:33 | MMO ---
Bilateral MAMMO Bilat Screen [facility]MARGARET. CLINICAL HISTORY: Patient is 55 years old and is seen for screening. The patient has the following family history of breast cancer: maternal grandmother, malignant (generic). The patient has no personal history of cancer. VIEWS: The views performed were: bilateral craniocaudal with tomosynthesis and bilateral mediolateral oblique with tomosynthesis. This study has been interpreted with the assistance of computer-aided detection. MAMMOGRAM FINDINGS: The breasts are heterogeneously dense, which could obscure a lesion on mammography. There are no suspicious masses, suspicious calcifications, or new areas of architectural distortion. IMPRESSION: THERE IS NO MAMMOGRAPHIC EVIDENCE OF MALIGNANCY. A ROUTINE FOLLOW-UP MAMMOGRAM IN 1 YEAR IS RECOMMENDED. THE RESULTS OF THIS EXAM WERE SENT TO THE PATIENT. ACR BI-RADS Category 1 - Negative MAMMOGRAPHY NOTE: 1. A negative mammogram report should not delay a biopsy if a dominant of clinically suspicious mass is present. 2. Approximately 10% to 15% of breast cancers are not detected by mammography. 3. Adenosis and dense breasts may obscure an underlying neoplasm. Reported by: MAUDE CONNER MD Electonically Signed: [id number]
--- NOTE | 2020-04-10 15:27 | BD ---
Exam: DEXA Bone Density 04/10/20 COMPARISON: None. HISTORY: 55-year-old postmenopausal female for screening. FINDINGS: Lumbar Spine: BMD (g/cm2) T-SCORE L1 1.138 1.3 L2 1.219 1.7 L3 1.123 0.4 L4 1.093 0.3 L1-L4 1.137 0.8 Left Femoral Neck: 0.925 0.7 Total Proximal Femur: 1.196 2.1 Impression: Normal bone mineral density. POS: EAA
== END 2020-04-10 10:10 | disposition home or self-care (01) ==
LOC: BICMAMMO 10:09
PROVIDERS: ATTEND Family Medicine
DX: Z12.31 Encounter for screening mammogram for malignant neoplasm of breast (principal); Z13.820 Encounter for screening for osteoporosis; Z78.0 Asymptomatic menopausal state; Z80.3 Family history of malignant neoplasm of breast
CPT/HCPCS: 77063; 77067; 77080

== ENCOUNTER 2022-09-27 13:55 | Outpatient (CLI) | payer MEDICARE, MEDICAID | END 2022-09-27 13:56 | disposition home or self-care (01) | LOC: BICMAMMO 13:55 | PROVIDERS: ATTEND Family Medicine | DX: Z12.31 Encounter for screening mammogram for malignant neoplasm of breast (principal); Z80.3 Family history of malignant neoplasm of breast; R92.8 Other abnormal and inconclusive findings on diagnostic imaging of breast | CPT/HCPCS: 77063; 77067 ==